=== PATIENT | male | born 1980 | race African-American/Black ===

== ENCOUNTER 2025-03-13 14:24 | Outpatient (AMB) | payer MEDICAID, SELFPAY ==
[2025-03-13 14:30] VITALS: BMI 23.7
--- NOTE | 2025-03-13 14:30 | A.OFFVIS_ITS ---
Vital Signs 03/13/25 14:30 Height 6 ft Weight 175 lb BMI 23.7 Intake Visit Reasons: New Pt - Foot Pain Hx of Fracture Intake Note: Jeanne is a 44 year old male who presents today as a New Patient with complaints of bilateral Foot Pain. Hx of left foot fracture that was being treated at [facility]. Patient reports the pain has been going on for about a year and the pain has progressively worsened. He has tried various prescribed medication but found no relief. Pain is located on the dorsum and plantar aspect Allergies No Known Allergies Allergy (Verified 03/13/25 14:30) HPI HPI New Pt - Foot Pain Hx of Fracture: Details: 44-year-old male with past medical history of G6PD deficiency presents for bilateral feet pain. He notes that in approximately 2020, he had a left foot fracture and subsequent surgery. He has had pain since then with burning and tingling sensation to the top of his left foot. Pain is present even when he is sitting and resting, worse when ambulating. He received x-rays at another facility a few weeks ago and was told he has broken hardware. He also has a right foot big toe joint pain that is present when moving his foot and when walking. He denies tobacco use. Review of Systems Const All systems reviewed & are unremarkable except as noted in HPI and below Physical Exam Vital Signs: BMI result Body Mass Index 23.7 Extrem Other: *Bilateral Lower Extremity Focused Exam Vascular: DP/PT 2/4, CFT less than 3 seconds all digits, temperature gradient warm to cool. Mild left dorsal 1st tarsometatarsal joint edema. Mild right 1st Metatarsal-phalangeal joint edema. Derm: Healed surgical scar over the left dorsal 1st tarsometatarsal joint. Elongated thickened dystrophic toenails bilaterally. Neuro: Positive Tinel's test left dorsal deep peroneal nerve. MSK: Moderate pain to left 1st tarsometatarsal joint with piano james test. Pain reciprocated to the left forefoot with forefoot squeeze. Mild pain on maximum dorsiflexion of right hallux 1st Metatarsal-phalangeal joint. Assessment & Plan Assessment & Plan (1) Lisfranc's sprain: Code(s): S93.629A - Sprain of tarsometatarsal ligament of unspecified foot, initial encounter Category: Medical Qualifiers: Encounter type: sequela Laterality: left Qualified Code(s): S93.622S - Sprain of tarsometatarsal ligament of left foot, sequela Plan: * Referred for left foot x-rays. * Differential diagnosis includes nonunion left 1st tarsometatarsal joint, arthritis to the lisfranc joint, versus neuritis. * Recommend carbon fiber insole for his left foot. * Rx Diclofenac 75mg BID * Follow up in 2 weeks. (2) Hallux limitus of right foot: Code(s): M20.5X1 - Other deformities of toe(s) (acquired), right foot Category: Medical Plan: * X-rays right foot ordered (3) Peripheral neuritis of left foot: Code(s): G57.92 - Unspecified mononeuropathy of left lower limb Category: Medical Plan: * Rx Capsaicin ointment Orders: Orders XR Foot Channing 3V Today M20.5X1 - Other deformities of toe(s) (acquired), right foot, S93.629A - Sprain of tarsometatarsal ligament of unspecified foot, initial encounter Medications: New capsaicin 0.1% (Arthritis Pain Relief (capsaicin)) do not wash area for at least 30 min after application 1 appl topical TID 42.5 grams 3RF Neuritis G57.92 - Unspecified mononeuropathy of left lower limb meloxicam Take 1 tablet once a day. 15 mg PO DAILY 14 tabs 0RF Foot pain M20.5X1 - Other deformities of toe(s) (acquired), right foot, S93.622S - Sprain of tarsometatarsal ligament of left foot, sequela Coding Level of Care Code New Pt Level 4 (47982) Diagnoses Sprain of tarsometatarsal ligament of left foot, sequela S93.622S Encounter type: sequela Laterality: left Hallux limitus of right foot M20.5X1 Peripheral neuritis of left foot G57.92 Time Spent (min) 35 Comment Ordered x-ray, prescribed medication
== END 2025-03-13 14:46 | disposition home or self-care (01) ==
LOC: HO.HPODS 14:24
PROVIDERS: PCP Nurse Practitioner Family; Visit Provider Student in an Organized Health Care Education/Training Program
DX: S93.622S Sprain of tarsometatarsal ligament of left foot, sequela (principal); M20.5X1 Other deformities of toe(s) (acquired), right foot; G57.92 Unspecified mononeuropathy of left lower limb
CPT/HCPCS: 99204

== ENCOUNTER → 2025-03-13 14:24 | Outpatient (BNVA) | payer MEDICAID, SELFPAY | PROVIDERS: PCP Nurse Practitioner Family; Visit Provider Student in an Organized Health Care Education/Training Program | DX: M20.5X1 Other deformities of toe(s) (acquired), right foot (principal); G57.92 Unspecified mononeuropathy of left lower limb; S93.622S Sprain of tarsometatarsal ligament of left foot, sequela; M79.672 Pain in left foot; M79.671 Pain in right foot | CPT/HCPCS: 99202 ==

== ENCOUNTER 2025-04-05 14:52 | Outpatient (REF) | payer MEDICAID, SELFPAY ==
--- NOTE | ~2025-04-05 | XR_ITS ---
EXAMINATION: XR FOOT 3 OR MORE VIEWS BILATERAL CLINICAL INFORMATION: M20.5X1 - Other deformities of toe(s) (acquired), right foot History of left 1st tarsometatarsal joint surgery. COMPARISON: None available. TECHNIQUE: Three views of the right of the right and left foot. FINDINGS: Right: No acute fracture or destruction bone lesion. Mild hallux valgus. No dislocation. No radiopaque foreign body. Left: Postoperative changes with hardware placement centered at first tarsometatarsal joint. The plate across the first tarsometatarsal joint is broken. No abnormal lucency surrounding the hardware. The first tarsometatarsal joint space is still visible. No acute fracture or destructive bone lesion. No dislocation. XR/XR Foot [place] 3V IMPRESSION: Right: Mild hallux valgus. Left: Postoperative changes. Fractured hardware across the first tarsometatarsal joint. Electronically signed by: Sybil Odom MD 04/05/2025 04:04 PM EDT
--- OUTSIDE RECORDS SUMMARY | 2025-04-05 17:47 | XMS_ITS | Data Portability ---
Author Organization GEOVANNA Glover [facility], [address] Address [address] [place] [address] Care Team Providers Care Coconut Boiler Name Role Phone [facility] Care Provider Assessment Encounter Date Assessment Date Assessment LastModified by Organization Details LastModified Time 03/20/2024 03/20/2024 Patient was evaluated by the Physician Commercial Lines Sales Executive using AV technology. This type of exam does not replace a need for an in-person evaluation if symptoms worsen or do not improve after 24-48 hours. Not available 03/20/2024 19:49:21 03/21/2024 03/21/2024 Patient was evaluated by the Physician Commercial Lines Sales Executive using AV technology. This type of exam does not replace a need for an in-person evaluation if symptoms worsen or do not improve after 24-48 hours. Not available 03/21/2024 12:13:45 03/25/2024 03/25/2024 Patient was evaluated by the Physician Commercial Lines Sales Executive using AV technology. This type of exam does not replace a need for an in-person evaluation if symptoms worsen or do not improve after 24-48 hours. Not available 03/25/2024 17:58:42 Plan of Treatment Reminders Order Date Submit Date Provider Last Modified By Organization Details Last Modified Time Details Appointments None recorded. Lab None recorded. Referral tapper hand referral - bilateral foot pain planter side , mutiple callous and blister formation. need further evaluation and treatment. 2023 024 [email or web address] Not available 19:08:38 Procedures None recorded. Surgeries None recorded. Imaging None recorded. Medication Orders sumatriptan 50 mg tablet 2023 024 [id number], [address] [place], [address], 17:57:07 neomycin-po lymyxin-hyd rocort 3.5 mg-10,000 unit/mL-1 % ear drops,susp 2023 024 [email or web address] 31 [id number], [address] [place], [address], 17:47:38 erythromyci n 5 mg/gram (0.5 %) eye ointment 2023 024 [email or web address] 31 [id number], [address] [place], [address], 17:47:33 ibuprofen 800 mg tablet 2023 024 2 [id number], [address] [place], [address], 19:28:03 cephalexin 500 mg capsule 2023 024 [email or web address] 2 [id number], [address] [place], [address], 19:27:03 fluticasone propionate 50 mcg/actuati on nasal spray,suspe nsion 2023 024 [email or web address] 2 [id number], [address] [place], [address], 19:27:57 Patient TargetsNo targets recorded. 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 need further evaluation an bilateral foot pain planter side , mutiple callous and blister formation. need further evaluation and treatment. Referring Physician: Miguel Delacruz, Urgent Care, Encounter Date: 03/03/2024 Results Created Date Observation Date Name Description Value Unit Range Abnormal Flag Note LastModifiedBy Organization Detail LastModifiedTime Result Notes None recorded. 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 Procedures Surgical History Date Name Laterality Status Provider Name and Address Organization Details Recorded Time 4 Virtual Visit completed GEOVANNA Woods [address] [place], [address], [place] - [facility] 03/25/2024 17:52:30 4 Virtual Visit completed Tracy Palumbo PA - [facility] 03/21/2024 12:04:54 4 Virtual Visit completed Erica Cortés PA - [facility] 03/20/2024 19:23:36 3 OC-UDS Rapid 5 or 10 panel Template completed Cleve Lee PA - [facility] 07/08/2022 18:30:18 procedure on knee completed Traesuki Rodas PA - [facility] 01/10/2024 18:37:37 procedure on foot completed Trae Curto PA - [facility] 01/10/2024 18:37:20 procedure on facial bone completed Trae Curto PA - [facility] 01/10/2024 18:38:20 Imaging Results None recorded. Procedure Notes None recorded. Medical Equipment None Reported. Allergies Allergen ID Allergen Name Allergen Category Reaction Reaction Severity Criticality Documentation Date Start Date Code Code System Note Provider Name and Address Organization Details Recorded Time 773330 Tylenol medicatio n Not available Not available Not available 03/20/2024 3 RxNorm G6PD unabl e to take Erica Cortés don PA - [facility] 19:26:56 Medications Name Sig Start Date Stop Date Status Note LastModified by Organization Details LastModified Time cyclobenzap rine 10 mg tablet TAKE 1 TABLET BY MOUTH THREE TIMES A DAY NEEDED FOR PAIN/SPAS M 03/20 completed Not Available Not Available Not Available loperamide 2 mg capsule 03/20 completed Not Available Not Available Not Available cetirizine 10 mg tablet TAKE 1 TABLET BY MOUTH EVERY DAY active Not Available Not Available No t Available ibuprofen 800 mg tablet Take 1 tablet 3 times a day by oral route with meal(s) for 10 days, for pain, inflammat ion. 03/20 completed Not Available Not Available Not Available tizanidine 4 mg tablet TAKE 1 TABLET BY MOUTH EVERY 8 HOURS NEEDED FOR SPASMS 03/20 completed Not Available Not Available Not Available prednisone 20 mg tablet TAKE 2 TABLETS BY MOUTH DAILY 03/20 completed Not Available Not Available Not Available loperamide 2 mg tablet Take 2 tablets as needed by oral route, for diarrhea. 03/20 completed Not Available Not Available Not Available methylpredn isolone 4 mg tablet TAKE 6 TABLETS ON DAY 1 DIRECTED ON PACKAGE AND DECREASE BY 1 TAB EACH DAY FOR A TOTAL OF 6 DAYS 03/20 completed Not Available Not Available Not Available sumatriptan 50 mg tablet TAKE 1 TABLET ORALLY NEEDED FOR MIGRAINE, CAN REPEAT IN 2 HOURS. MAX OF 2 IN 24 HRS active Not Available Not Available No t Available cephalexin 500 mg capsule Take 1 capsule every 8 hours by oral route with meal(s) for 7 days, for skin infection . 03/20 completed Not Available Not Available Not Available erythromyci n 5 mg/gram (0.5 %) eye ointment APPLY 1 CM RIBBON INTO THE LOWER CONJUNCTI HERNANDO SAC(S) IN THE AFFECTED EYE(S) BY OPHTHALMI C ROUTE 3 TIMES PER DAY FOR 7 DAYS 03/25 completed Not Available Not Available Not Available dexamethaso ne 4 mg tablet TAKE 1 TABLET BY MOUTH TWICE A DAY 03/20 completed Not Available Not Available Not Available ibuprofen 400 mg tablet TAKE 1 TABLET BY MOUTH 4 TIMES DAILY NEEDED FOR PAIN. 03/20 completed Not Available Not Available Not Available clotrimazol e 1 % topical solution INSTILL 4 DROPS INTO THE AFFECTED EAR TWICE DAILY FOR 10 DAYS 03/20 completed Not Available Not Available Not Available ibuprofen 600 mg tablet TAKE 1 TABLET BY MOUTH 3 TIMES A DAY FOR 10 DAYS 03/20 completed Not Available Not Available Not Available ondansetron 4 mg disintegrat ing tablet TAKE 1 TABLET (ORAL) EVERY 6 HOURS (NAUSEA AND VOMITING) FOR 5 DAYS 03/20 completed Not Available Not Available Not Available fluticasone propionate 50 mcg/actuati on nasal spray,suspe nsion INSTILL 2 SPRAY INTO THE NOSTRIL ONCE DAILY FOR 90 DAYS 03/20 completed Not Available Not Available Not Available naproxen 500 mg tablet TAKE 1 TABLET BY MOUTH TWICE A DAY 03/20 completed Not Available Not Available Not Available neomycin-po lymyxin-hyd rocort 3.5 mg-10,000 unit/mL-1 % ear drops,susp Instill 4 drops 3 times a day by otic route for 7 days. 03/25 completed Not Available Not Available Not Available escitalopra m 10 mg tablet TAKE 1 TABLET BY MOUTH EVERY DAY 03/20 completed Not Available Not Available Not Available diclofenac 1 % topical gel APPLY 4 G TOPICALLY 2 (TWO) TIMES DAILY 03/20 completed Not Available Not Available Not Available Vitals Date Recorded Body height Body mass index (BMI) Body weight Respiratory rate Body temperature Heart rate Oxygen saturation Oxygen saturation in Arterial blood by Pulse oximetry Systolic And Diastolic Provider Name and Address Organization Details Last Updated DateTime 182.88 cm 24.4 kg/m2 11003.6 3 g 18 /min 97.5 [degF] 74 /min 97 % 97 % 96/67 mm[Hg] Viridiana Grahamts [place] - [facility] 4 10:31:05 Date Recorded Body height Body mass index (BMI) Body weight Pain severity - 0-10 verbal numeric rating [Score] - Reported Oxygen saturation Oxygen saturation in Arterial blood by Pulse oximetry Heart rate Respiratory rate Body temperature Systolic And Diastolic Provider Name and Address Organization Details Last Updated DateTime 182.88 cm 24.4 kg/m2 65320.6 3 g 8 98 % 98 % 73 /min 18 /min 98.7 [degF] 94/61 mm[Hg] Bria Gonzalez [facility] 18:14:34 Date Recorded Body height Body mass index (BMI) Body weight Provider Name and Address Organization Details Last Updated DateTime 03/20/2024 182.88 cm 25.8 kg/m2 77482.55 g Erica Garzaes [place] - [facility] 03/20/2024 19:25:50 Date Recorded Body height Body mass index (BMI) Body weight Provider Name and Address Organization Details Last Updated DateTime 03/21/2024 182.88 cm 25.8 kg/m2 86225.55 g Tracy Palumbo [facility] 03/21/2024 12:06:46 Date Recorded Body height Provider Name an d Address Organization Details Last Updated DateTime 03/25/2024 182.88 cm Bria Gonzalez [facility] 03/25/2024 17:47:24 Social History Question Answer Notes LastModified by Organizat ion Details LastModified Time Tobacco Smoking Status Former Smoker Trae ochoa PA [facility] 01/10/2024 18:37:03 Have You Had A Flu Shot This Season? No Information not available 01/10/2024 If No, Would You Like A Flu Shot Today? No [email or web address] Information not available 03/21/2024 What Is Your Relationship Status? Single [email or web address] Information not available 03/20/2024 Have You Recently Traveled Abroad? No Information not available 01/10/2024 Sex: Unknown Functional Status Question Answer Note LastModified by Organizat ion Details LastModified Time Do you use any illicit or recreational drugs? No Information not available 01/10/2024 Do you or have you ever used any other forms of tobacco or nicotine? No Information not available 01/10/2024 What is your level of alcohol consumption? None Information not available 01/10/2024 Are you currently employed? No [email or web address] Information not available 03/20/2024 Mental Status None recorded. Family History Relationship Description Onset Age of this Age Resolved Age Notes LastModified by Organization Details LastModified Time Mother Hypertensive disorder Not available 2023 18:35:53 Father Hypertensive disorder Not available 2023 18:35:53 Medical History No medical history recorded. Immunizations Vaccine Type Date Status Note Provider Nam e and Address Organization Details Recorded Time Influenza, MDCK, quadrivalent, PF 3 completed Viridiana Robert null, PA - [facility] 02/22/2024 10:15:40 Influenza, recombinant, quadrivalent, PF 0 completed Viridiana Robert null, PA - [facility] 02/22/2024 10:15:40 MMR 5 completed Viridiana Robert null, PA - [facility] 02/22/2024 10:15:41 COVID-19, mRNA, LNP-S, PF, 100 mcg/0.5mL dose or 50 mcg/0.25mL dose 2 completed Viridiana Robert null, PA - [facility] 02/22/2024 10:15:41 COVID-19, mRNA, LNP-S, PF, 100 mcg/0.5mL dose or 50 mcg/0.25mL dose 1 completed Viridiana Robert null, PA - [facility] 02/22/2024 10:15:41 COVID-19, mRNA, LNP-S, PF, 100 mcg/0.5mL dose or 50 mcg/0.25mL dose 1 completed Viridiana Robert null, PA - [facility] 02/22/2024 10:15:41 COVID-19, mRNA, LNP-S, bivalent, PF, 50 mcg/0.5 mL or 25mcg/0.25 mL dose 3 completed Viridiana Robert null, PA - [facility] 02/22/2024 10:15:41 Tdap 3 completed Viridiana Robert null, PA - [facility] 02/22/2024 10:15:41 Tdap 5 completed Viridiana Robert null, PA - [facility] 02/22/2024 10:15:41 Tdap 1 completed Viridiana Robert null, PA - [facility] 02/22/2024 10:15:41 Tdap 4 completed Viridiana Robert null, PA - [facility] 02/22/2024 10:15:41 Influenza, split virus, trivalent, preservative 7 completed Viridiana Robert null, PA - [facility] 02/22/2024 10:15:41 Influenza, split virus, trivalent, preservative 7 completed Viridiana Robert null, PA - [facility] 02/22/2024 10:15:41 Influenza, split virus, trivalent, preservative 4 completed Viridiana Robert null, PA - [facility] 02/22/2024 10:15:41 Influenza, split virus, trivalent, preservative 9 completed Viridiana Robert null, PA - [facility] 02/22/2024 10:15:41 Influenza, split virus, trivalent, preservative 4 completed Viridiana Robert null, PA - [facility] 02/22/2024 10:15:41 Influenza, split virus, quadrivalent, PF 1 completed Viridiana Robert null, PA - [facility] 02/22/2024 10:15:41 Hep A, unspecified formulation 8 completed Viridiana Robert null, PA - [facility] 02/22/2024 10:15:41 Hep A, unspecified formulation 8 completed Viridiana Jones null, PA - [facility] 02/22/2024 10:15:41 Hep A, unspecified formulation 5 completed Viridiana Jones null, PA - [facility] 02/22/2024 10:15:41 COVID-19, mRNA, LNP-S, PF, 50 mcg/0.5 mL 4 completed Erica Cortés null, PA - [facility] 03/20/2024 19:26:05 Past Encounters Encounter ID Performer Location Encounter Start Date Encounter Closed Date Diagnosis/Indication Diagnosis SNOMED-CT Code Diagnosis ICD10 Code Diagnosis IMO Codes Diagnosis Note [id number] [address] [facility] [place] [address] 06/20/2019 10:31:31 06/20/2019 13:37:24 [id number] Suzette Lauren [facility] [address] [facility] [place] [address] 07/08/2022 16:28:05 07/08/2022 19:31:54 History and physical examination, pre-employment [id number] Z02.1 [id number] Miguel Delacruz [facility] [address] [facility] [place] [address] 01/10/2024 18:14:01 01/10/2024 19:47:12 Contusion of left forearm [id number] S50.12XA You have a large Contusion/ Hematoma of the skin. The following are my recommenda tions to help with your discomfort and healing1. Ice regularly for the next 3 days.2. After 3 days apply a heating pad to the area several times during the day - this will help keep the clot more liquid and allow the body to reabsorb it.3. Take Ibuprofen or Tylenol if you do not have any allergies to these medication s. If you take a blood thinner you should not take NSAIDS like Ibuprofen. 4. I would purchase some Arnica Cream and apply it to the bruise area. This will help with the healing and provide some pain relief. Follow up if the skin around the bruise becomes hot and red - this could indicate infection. The bruise will resolve over time. The length is depended on the size. The larger the bruise the longer it will take for it to resolve. Some bruises/he matomas will take 1-2 months to completely resolve. If you have any concerns about the bruise or if it changes appearance , I would advise having a medical profession al look at it. [id number] GEOVANNA Araya [address] [facility] [place] [address] 02/13/2024 10:33:36 02/13/2024 11:19:08 Viral gastroenteritis 073651846 A08.4 [id number] GEOVANNA Woods [address] [place] [address] 02/22/2024 10:13:37 02/22/2024 10:43:48 Plantar fasciitis of right foot 5091367788 3279498 M72.2 One of the most common causes of heel pain is a problem called plantar fasciitis. Plantar fasciitis is the term doctors use when a part of the foot called the plantar fascia gets irritated. The plantar fascia is a tough band of tissue that connects the heel bone to the toes The following may help with the pain- Rest Rest your foot to help it heal. But don't completely stop being active. Doing that can lead to more pain and stiffness in the long run. Ice your foot Putting ice on your heel for 20 minutes up to 4 times a day might relieve pain. Put a thin towel between the ice and your skin. Icing and massaging your foot before exercise might also help. Do special foot exercises Certain exercises can help with heel pain. Do these exercises every day Take pain medicines If your pain is severe, you can try taking over-the-c ounter pain medicines. Examples include ibuprofen (sample brand names: Advil, Motrin) and naproxen (sample brand name: Aleve). Please take as directed on the package labeling. Wear sturdy shoes Sneakers with a lot of cushion and good arch and heel support are best. Shoes with rigid soles can also help. Adding padded or gel heel inserts to your shoes might help, too. Wear splints at night Some people feel better if they wear a splint while they sleep that keeps their foot straight. These splints are sold in pharmacies and medical supply stores. Recommend following with a specialist if symptoms persist or new symptoms arise. A radiologis t is going to read your radiologis t report, if they see anything abnormal or different I will call you with the results. If you don't hear from [facility] radiologis t agreed with my interpreta tion. Upper resp iratory infection 95753412 J06.9 Patient presented with symptoms of upper respirator y infection. Advised to drink plenty of fluids, run a cool-mist humidifier in room at night, gargle salt water for sore throat, and get plenty of rest. Patient should avoid over-exert ion and reduce exposure to irritants such as smoke, cold, dry air, and dust.Treat ment currently involves symptomati c relief. Nasal sprays like nasonex and flonase (or generic) as well as neti pot to help clear sinuses Patient may take acetaminop hen or ibuprofen as directed to reduce fever and body aches.Anti histamine and decongesta nt usage was discussed and recommenda tions made.Coby sherwood understood these instructio ns and will follow up in the office in 10 days to 2 weeks if symptoms not improving. ER if any shortness of breath/sumaya st pain or worsening. Thank you for using [facility] today, please feel free to contact our office if you have any questions or concerns. [id number] JEN UGALDE MD [address] [facility] [address] [place] [address] 03/03/2024 17:25:20 03/03/2024 19:08:38 Pain in bilateral feet 6604848198 8853254 M79.671 Based on your presentati on and exam today, I am diagnosing you with foot blister.. I am going to prescribe you and antibiotic to help prevent an infection since this is deep. Please be sure to complete the full course of this antibiotic to prevent antibiotic resistance . I suggest with any antibiotic that you take Florastor or another probiotic. This help re-coloniz e you body with the good bacteria. The following are my recommenda tions to help you feel better and aid in resolving this infection: 1. No creams or lotions on the affected area - so no Antibiotic ointment.2 . Take Ibuprofen or Tylenol if you do not have any allergies to these medication s. If you take a blood thinner you should not take NSAIDS like Ibuprofen. These medication will help with the inflammati on in your respirator y tract which should help the cough.3. Try to limit walking for the next 3-5 days so the body can form new skin below.4. Do no squeeze or pick at the area. This can worsen the infection. The following are warning signs to look out for that would suggest an infection. This would mean you should be seen again:1. Fever > 100.52. Redness is spreading to double the size in 24 hours3. Increased swelling and pain.4. Inability to move a joint5. Swollen lymph nodes that are tender Thank you for using [facility] today, please don't hesitate to call or reach out to us if you have any questions or concerns. [id number] GEOVANNA Woods [address] [facility] [address] [place] [address] 03/20/2024 19:15:07 03/20/2024 19:48:53 Hordeolum externum of lower eyelid of right eye 4795101345 43605 H00.012 Based on your presentati on and exam - you are being diagnosed with a Stye and Blephariti s This is a clogged gland in the eyelid. This will resolve over time. The following are my recommenda tions to help with your symptoms and this diagnosis: 1. Do not rub your eyes this can cause it to spread or damage the cornea of your eye.2. Do not wear contacts for at least 1 week if you have contacts.4 . No makeup5. You can take Ibuprofen or Tylenol for discomfort if you are not allergic to them.6. If you get lubricatin g eye drops and put them in the refrigerat or - this can help with itching and discomfort .7. Get an old sock and fill it with a cup of rice - put it in the microwave for a few second and apply it to the eyelid. Do this as frequently as possible - but make sure you don't make it too hot because it could cause a burn if it is too hot - you want it to just be warm.8. Get Baby Wash/Soap and clean eyelashes with a Q-tip everyday. This will help with the itching and irritation . You should be seen again if you develop any of the following symptoms1. Eye pain or pressure behind the eye.2. Redness or significan t swelling of the eyelid or around the eye3. Headache4. Fever > 100.55. No improvemen t in current symptoms in the next 1 week.6. Increased swelling of the eye lid that lasts longer than 2 weeks. Thank you for using [facility] today, please feel free to contact us with any questions or concerns. [id number] GEOVANNA Woods [address] [facility] [address] [place] [address] 03/21/2024 12:02:38 03/21/2024 12:31:15 Otitis externa of right ear 2646418071 435183 H60.91 You have been diagnosed with a External Ear infection and early erysipelas . Suggestion s to help with your discomfort and recovery include:1. Laying the effected ear on a heating pad or applying a warm rice bag or something warm.2. Motrin and Tylenol Regularly - this will help with pain and inflammati on of the Eustachian Tube - this is very important for a speedy recovery.3 . Antihistam ine like Benedryl - will help with swelling.4 . Staying Hydrated If you develop any of the following Symptoms I would be seen again - I would recommend the ER1. Fever > 101.02. Stiff Neck3. Pain in the skull behind the Ear.4. Worsening Pain5. Bleeding from the Ear6. Severe Sore Throat.7. Severe Headache Antibiotic s typically take 4-5 days to start working so do the above to help with your symptoms. Probiotics are important while taking antibiotic s - I recommend Florastor Make sure you finish the full course of the antibiotic s - if you don't this can lead to antibiotic resistance . Thank you for using [facility] today - and don't hesitate to contact our office if you have any concerns or questions. [id number] GEOVANNA Woods [address] [facility] [address] [facility] [place] [address] 03/25/2024 17:42:51 03/25/2024 18:00:50 Migraine 35832365 G43.909 A migraine is a severe headache. The pain can be so severe that it interferes with your daily activities . A migraine can last a few hours up to several days. The exact cause of migraines is not known. D ISCHARGE INSTRUCTIO NS: S [place] care immediatel y if:You have a headache that seems different or much worse than your usual migraine headache.Y ou have a severe headache with a fever or a stiff neck.You have new problems with speech, vision, balance, or movement.Y ou feel like you are going to faint, you become confused, or you have a seizure.Co ntact your healthcare provider or neurologis t if:Your migraines interfere with your daily activities .Your medicines or treatments stop working.Yo u have questions or concerns about your condition or care.Medic alfredo:Take medicine as soon as you feel a migraine begin. Manage your symptoms:R est in a dark, quiet room. This will help decrease your pain. Sleep may also help relieve the pain.Apply ice to decrease pain. Use an ice pack, or put crushed ice in a plastic bag. Cover the ice pack with a towel and place it on your head where it hurts for 15 to 20 minutes every hour.Apply heat to decrease pain and muscle spasms. Use a small towel dampened with warm water or a heating pad, or sit in a warm bath. Apply heat on the area for 20 to 30 minutes every 2 hours. You may alternate heat and ice. Pain in bi lateral feet [id number] M79.671 Following with podiatry for plantar fasciitis Health Concerns Section Related Observation LastModified by Organization Detai ls LastModified Time None Recorded Concern Status LastModified by Organization Details LastModified Time None Recorded Advance Directives Directive None Recorded Payers Insurance Date Sequence Insurance Name Policy Number Policy Arboleda Covered Member ID Arboleda Member ID Guarantor Name 07/08/2022 OC-ESCREEN Escreen PFS EL CAJON Devendra Husain 04/03/2024 1 [facility] (MEDICAID REPLACEMENT - HMO) TRIPP Layone Wan Husain [id number] Devendra Husain 04/03/2024 1 [facility] (MEDICAID REPLACEMENT - HMO) [id number] Devendra Husain [id number] Devendra Husain 01/10/2024 1 [facility] (MEDICAID HMO) [id number] Devendra Husain [id number] Devendra Husain 05/06/2022 [employer]IC WORKER[employer] (MOVED TO HOLD) Oc-Medexp ress Occ Med Generic (Move To Hold) [[id number]] Devendra Husain Notes Date Note Type Note Provider Name and Address Organization Details Recorded Time 02/22/20 24 text/htm l 43 y/o male with pain to the bottom of his R foot for several months, worsening. Also with sinus congestion for the past several weeks, no fevers, chills, minimal cough [place], [address], [place] - [facility] 02/22/2024 10:51:06 03/03/20 24 text/htm l Foot/Ankle UCReported by PatientHPIFor associated symptoms, patient reportsswellingandrednessbut reportsno weakness,no numbness,no tingling,no warmth, andno ecchymosis. 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 stating bottom of bilateral feet hurt very bad.). For location, patient reportsbilateralandfoot. For problem, patient reportsswelling. For severity, patient reportsmoderate. For duration, patient reports4 weeks. For context, patient reportsoveruse. For aggravating factors, patient reportsgoing from sit to stand,standing, andwalking. For alleviating factors, patient reportselevation,ice,limited weight bearing, andrest. For previous injury, patient reportsno prior injury to affected body part. For previous treatment, patient reportsnone. For prior imaging, patient reportsnone. Miguel Delacruz NP [address] [place], [address], [place] - [facility] 03/03/2024 19:07:46 03/20/20 24 text/htm l Verified the Patient's Name and at the start of visit.Audio/Visual Technology was used and functioning properly.Patient (and Guardian) - verbally understands limitations of a medical exam using A/V Technology - understands alternative treatment would be to visit an on-site medical facility.The patient did confirm they are physically located in the state that I hold a valid medical license. 43 y/o male with swelling to his R lower eyelid, started 2 days ago, uncomfortable, some drainage GEOVANNA Woods [address], [place], [address], [place] - [facility] 03/20/2024 19:49:34 03/21/20 24 text/htm l Verified the Patient's Name and at the start of visit.Audio/Visual Technology was used and functioning properly.Patient (and Guardian) - verbally understands limitations of a medical exam using A/V Technology - understands alternative treatment would be to visit an on-site medical facility.The patient did confirm they are physically located in the state that I hold a valid medical license. 43 y/o male for virtual visit for right ear pain, feels like wax is built up and crusted up. Started a week or so. GEOVANNA Woods [address] [place], [address], [place] - [facility] 03/21/2024 12:29:00 03/25/20 24 text/htm l Verified the Patient's Name and at the start of visit.Audio/Visual Technology was used and functioning properly.Patient (and Guardian) - verbally understands limitations of a medical exam using A/V Technology - understands alternative treatment would be to visit an on-site medical facility.The patient did confirm they are physically located in the state that I hold a valid medical license. 43 y/o male for virtual visit having foot pain, has follow up with podiatry in 3 days. Also having a migraine, usually takes sumatriptan, has run out. needs refill [address] [place], [address], [place] - [facility] 03/25/2024 17:58:56
== END 2025-04-05 14:53 | disposition home or self-care (01) ==
LOC: HO.HHCX 14:52
PROVIDERS: Visit Provider Student in an Organized Health Care Education/Training Program
DX: M20.5X1 Other deformities of toe(s) (acquired), right foot (principal); S93.621D Sprain of tarsometatarsal ligament of right foot, subsequent encounter; Z98.890 Other specified postprocedural states
CPT/HCPCS: 73630

== ENCOUNTER → 2025-04-05 15:14 | Outpatient (BNV) | payer MEDICAID, SELFPAY | PROVIDERS: Visit Provider Radiology Body Imaging | DX: M20.11 Hallux valgus (acquired), right foot (principal); Z96.698 Presence of other orthopedic joint implants | CPT/HCPCS: 73630 ==

== ENCOUNTER 2025-04-06 10:35 | Outpatient (AMB) | payer MEDICAID, SELFPAY ==
--- NOTE | 2025-04-06 10:44 | A.OFFVIS_ITS ---
Vital Signs 04/06/25 10:48 Height 6 ft Weight 175 lb BMI 23.7 Intake Visit Reasons: Foot Pain Hx of Fracture Intake Note: Jeanne is a 44 year old male who presents today for a follow up on his bilateral foot pain. Patient has concerns due to his pain worsening since the last time he was seen. He has tried OTC pain as well as prescribed medication but has found no relief for his symptoms. Allergies No Known Allergies Allergy (Verified 04/06/25 10:48) HPI HPI Foot Pain Hx of Fracture: Details: 44-year-old male with past medical history of G6PD deficiency returns for for bilateral feet pain. Patient notes that the pain to his toes bilaterally is worsening. History: He notes that in approximately 2020, he had a left foot fracture and subsequent surgery. He has had pain since then with burning and tingling sensation to the top of his left foot. Pain is present even when he is sitting and resting, worse when ambulating. He received x-rays at another facility a few weeks ago and was told he has broken hardware. He also has a right foot big toe joint pain that is present when moving his foot and when walking. He denies tobacco use. Review of Systems Const All systems reviewed & are unremarkable except as noted in HPI and below Physical Exam Vital Signs: BMI result Body Mass Index 23.7 Extrem Other: *Bilateral Lower Extremity Focused Exam Vascular: DP/PT 2/4, CFT less than 3 seconds all digits, temperature gradient warm to cool. Mild left dorsal 1st tarsometatarsal joint edema. Mild right 1st Metatarsal-phalangeal joint edema. Derm: Healed surgical scar over the left dorsal 1st tarsometatarsal joint. Elongated thickened dystrophic toenails bilaterally. Neuro: Positive Tinel's test left dorsal deep peroneal nerve. MSK: Moderate pain to left 1st tarsometatarsal joint with piano james test. Range of motion to the left 1st and 2nd ray still present. Pain reciprocated to the left forefoot with forefoot squeeze. Moderate pain on maximum dorsiflexion of right hallux 1st Metatarsal-phalangeal joint. Results Reviewed Results Reviewed: Podiatry X-ray Read: 04/05/2025 X-ray right foot 3 views (AP, MO, Lateral) reviewed which shows moderate joint space narrowing of the 1st metatarsophalangeal joint with mild hallux abductovalgus. Normal tibial sesamoid position without fracture. I personally reviewed the imaging and my findings are listed above. Podiatry X-ray Read: 04/05/2025 X-ray left foot 3 views (AP, MO, Lateral) reviewed which shows n onunion of the 1st and 2nd tarsometatarsal joints with broken plate overlying the 1st tarsometatarsal joint, intact Lisfranc home-run screw. Moderate joint space narrowing of the 4th tarsometatarsal joint. I personally reviewed the imaging and my findings are listed above. Assessment & Plan Assessment & Plan (1) Nonunion of fracture of left foot: Code(s): S92.902K - Unspecified fracture of left foot, subsequent encounter for fracture with nonunion Category: Medical Plan: * Reviewed left foot x-rays with the patient. * Explained that he has a nonunion of his Lisfranc injury. * Treatment options were discussed in the form of removal of hardware, revision 1st and 2nd tarsometatarsal joint arthrodesis and DPN decompression. * Ordered vitamin-D, CBC, BNP labs to evaluate other sources of possible nonunion. Given his history of G6PD, he may require treatment for his anemia prior to undergoing surgical correction. (2) Peripheral neuritis of left foot: Code(s): G57.92 - Unspecified mononeuropathy of left lower limb Category: Medical Plan: * Reviewed x-rays with the patient. (3) Neuritis of right foot: Code(s): G57.91 - Unspecified mononeuropathy of right lower limb Category: Medical Plan: * Ordered vitamin-B testing * Referred for EMG NCV studies Orders: Orders NE electromyogram (EMG) Today G57.91 - Unspecified mononeuropathy of right lower limb, G57.92 - Unspecified mononeuropathy of left lower limb NE nerve conduction velocity Today G57.91 - Unspecified mononeuropathy of right lower limb, G57.92 - Unspecified mononeuropathy of left lower limb Vitamin B12 Today G57.91 - Unspecified mononeuropathy of right lower limb, G57.92 - Unspecified mononeuropathy of left lower limb Vitamin D 25-OH Total Today G57.92 - Unspecified mononeuropathy of left lower limb Complete Blood Count Auto Diff Today G57.91 - Unspecified mononeuropathy of right lower limb, G57.92 - Unspecified mononeuropathy of left lower limb Basic Metabolic Panel Today G57.91 - Unspecified mononeuropathy of right lower limb, G57.92 - Unspecified mononeuropathy of left lower limb Coding Level of Care Code Est Pt Level 3 (71297) Diagnoses Nonunion of fracture of left foot S92.902K Peripheral neuritis of left foot G57.92 Neuritis of right foot G57.91 Time Spent (min) 30
[2025-04-06 10:48] VITALS: BMI 23.7
== END 2025-04-06 11:21 | disposition home or self-care (01) ==
LOC: HO.HPODS 10:36
PROVIDERS: Visit Provider Student in an Organized Health Care Education/Training Program
DX: S92.902K Unspecified fracture of left foot, subsequent encounter for fracture with nonunion (principal); G57.92 Unspecified mononeuropathy of left lower limb; G57.91 Unspecified mononeuropathy of right lower limb
CPT/HCPCS: 99213

== ENCOUNTER → 2025-04-06 10:35 | Outpatient (BNVA) | payer MEDICAID, SELFPAY | PROVIDERS: Visit Provider Student in an Organized Health Care Education/Training Program | DX: S92.325K Nondisplaced fracture of second metatarsal bone, left foot, subsequent encounter for fracture with nonunion (principal); S92.315K Nondisplaced fracture of first metatarsal bone, left foot, subsequent encounter for fracture with nonunion; G57.92 Unspecified mononeuropathy of left lower limb; G57.91 Unspecified mononeuropathy of right lower limb; X58.XXXA Exposure to other specified factors, initial encounter; Y93.9 Activity, unspecified; Y92.9 Unspecified place or not applicable; Y99.9 Unspecified external cause status; T84.213A Breakdown (mechanical) of internal fixation device of bones of foot and toes, initial encounter | CPT/HCPCS: 99212 ==

== ENCOUNTER 2025-05-11 13:17 | Outpatient (REF) | payer MEDICAID, SELFPAY ==
[2025-05-11 18:35] LABS: MANUAL DIFF FLAG NO
[2025-05-11 18:39] LABS: Hematocrit 38.8 % (42.0-52.0); Hemoglobin 12.7 g/dl (14.0-18.0); Imm Gran Abs Auto 0.01 X10*3/uL (0.00-0.03); Imm Gran Pct Auto 0.2 % (0.0-0.4); Lymphocytes Absolute Auto 2.3 X10*3/uL (1.2-4.9); Mean Corpuscular HGB Conc 32.7 g/dl (31.0-36.0); Mean Corpuscular Hemoglobin 33.3 pg (27.0-33.0); Mean Corpuscular Volume 101.8 fL (80.0-98.0); NRBC Abs Auto 0.000 X10*3/uL (0.0-0.012); NRBC Pct Auto 0.0 /100WBC (0.0-0.2); Platelet Count 277 X10*3/uL (160-400); Red Blood Count 3.81 X10*6/uL (4.60-5.80); White Blood Count 4.7 X10*3/uL (4.8-10.8)
[2025-05-11 19:28] LABS: Anion Gap 7 (12-20); Blood Urea Nitrogen 9 mg/dL (9-16); Calcium 9.4 mg/dL (8.4-10.2); Carbon Dioxide 29 mmol/L (22-29); Chloride 109 mmol/L (96-108); Estimated Glomerular Filt Rate > 60; Potassium 4.4 mmol/L (3.3-5.1); Sodium 141 mmol/L (135-145)
[2025-05-11 23:59] LABS: Vitamin B12 579 pg/mL (200-900)
== END 2025-05-11 13:18 | disposition home or self-care (01) ==
LOC: HO.HKASLDS 13:17
PROVIDERS: PCP Dentist General Practice; Visit Provider Student in an Organized Health Care Education/Training Program
DX: G57.93 Unspecified mononeuropathy of bilateral lower limbs (principal)
CPT/HCPCS: 36415; 80048; 82306; 82607; 85025

== ENCOUNTER 2025-05-17 13:00 | Outpatient (AMB) | payer MEDICAID, SELFPAY ==
--- NOTE | 2025-05-17 13:06 | A.OFFVIS_ITS ---
Vital Signs 05/17/25 13:07 Height 6 ft Weight 175 lb BMI 23.7 Intake Visit Reasons: Foot Pain Hx of Fracture/fu nerve test Intake Note: Jeanne is a 44 year old male who presents to the office today for a follow up on his Peripheral neuritis/ BLE. At last visit patient was instructed to complete labs and a EMG study was ordered. Pt states his EMG appointment has been rescheduled for 06/05/25 and his labs have been completed as of 05/11/25. Patient experiences still bilateral pain in his foot however he notes it is worst in his left. Allergies No Known Allergies Allergy (Verified 05/17/25 13:08) HPI HPI Foot Pain Hx of Fracture/fu nerve test: Details: 44-year-old male with past medical history of G6PD deficiency returns for for bilateral feet pain. Patient states he was unable to receive his nerve conduction test. He received his blood tests prior to this visit. He is also experiencing left shoulder pain which he is planning to see orthopedic surgery for. History: He notes that in approximately 2020, he had a left foot fracture and subsequent surgery. He has had pain since then with burning and tingling sensation to the top of his left foot. Pain is present even when he is sitting and resting, worse when ambulating. He received x-rays at another facility a few weeks ago and was told he has broken hardware. He also has a right foot big toe joint pain that is present when moving his foot and when walking. He denies tobacco use. Review of Systems Const All systems reviewed & are unremarkable except as noted in HPI and below Physical Exam Vital Signs: BMI result Body Mass Index 23.7 Extrem Other: *Bilateral Lower Extremity Focused Exam Vascular: DP/PT 2/4, CFT less than 3 seconds all digits, temperature gradient warm to cool. Mild left dorsal 1st tarsometatarsal joint edema. Mild right 1st Metatarsal-phalangeal joint edema. Derm: Healed surgical scar over the left dorsal 1st tarsometatarsal joint. Elongated thickened dystrophic toenails bilaterally. Neuro: Positive Tinel's test left dorsal deep peroneal nerve. MSK: Moderate pain to left 1st tarsometatarsal joint with piano james test. Range of motion to the left 1st and 2nd ray still present. Pain reciprocated to the left forefoot with forefoot squeeze. Moderate pain on maximum dorsiflexion of right hallux 1st Metatarsal-phalangeal joint. Results Reviewed Results Reviewed: Podiatry X-ray Read: 04/05/2025 X-ray right foot 3 views (AP, MO, Lateral) reviewed which shows moderate joint space narrowing of the 1st metatarsophalangeal joint with mild hallux abductovalgus. Normal tibial sesamoid position without fracture. I personally reviewed the imaging and my findings are listed above. Podiatry X-ray Read: 04/05/2025 X-ray left foot 3 views (AP, MO, Lateral) reviewed which shows nonunion of the 1st and 2nd tarsometatarsal joints with broken plate overlying the 1st tarsometatarsal joint, intact Lisfranc home-run screw. Moderate joint space narrowing of the 4th tarsometatarsal joint. I personally reviewed the imaging and my findings are listed above. Laboratory Tests 05/11/25 13:28 WBC 4.7 L Hgb 12.7 L Vitamin B12 579 25-OH Vitamin D Total 19.5 L Assessment & Plan Assessment & Plan (1) Nonunion of fracture of left foot: Code(s): S92.902K - Unspecified fracture of left foot, subsequent encounter for fracture with nonunion Category: Medical Qualifiers: Fracture type: closed Qualified Code(s): S92.902K - Unspecified fracture of left foot, subsequent encounter for fracture with nonunion Plan: * Previously reviewed left foot x-rays with the patient. Explained that he has a nonunion of his Lisfranc injury. * Treatment options were discussed in the form of removal of hardware, revision 1st and 2nd tarsometatarsal joint arthrodesis and DPN decompression. * Discussed that there is a high rate of nonunion due to marijuana use (2) Peripheral neuritis of left foot: Code(s): G57.92 - Unspecified mononeuropathy of left lower limb Category: Medical Plan: * Discussed possible treatment options pending EMG/NCV findings (3) Neuritis of right foot: Code(s): G57.91 - Unspecified mononeuropathy of right lower limb Category: Medical Plan: * Vitamin-B levels within normal limits * Pending EMG NCV studies (4) Vitamin D deficiency: Code(s): E55.9 - Vitamin D deficiency, unspecified Category: Medical Plan: * Recommended vitamin-D 2000 IU daily * Recommend vitamin-D levels within normal limits prior to planning for surgery for revision left foot nonunion Coding Level of Care Code Est Pt Level 3 (67103) Diagnoses Closed fracture of left foot with nonunion, subsequent encounter S92.902K Fracture type: closed Peripheral neuritis of left foot G57.92 Neuritis of right foot G57.91 Vitamin D deficiency E55.9 Time Spent (min) 25
[2025-05-17 13:07] VITALS: BMI 23.7
== END 2025-05-17 13:50 | disposition home or self-care (01) ==
LOC: HO.HPODS 13:01
PROVIDERS: Visit Provider Student in an Organized Health Care Education/Training Program
DX: S92.902K Unspecified fracture of left foot, subsequent encounter for fracture with nonunion (principal); G57.92 Unspecified mononeuropathy of left lower limb; G57.91 Unspecified mononeuropathy of right lower limb; E55.9 Vitamin D deficiency, unspecified
CPT/HCPCS: 99213

== ENCOUNTER → 2025-05-17 13:00 | Outpatient (BNVA) | payer MEDICAID, SELFPAY | PROVIDERS: Visit Provider Student in an Organized Health Care Education/Training Program | DX: S92.902K Unspecified fracture of left foot, subsequent encounter for fracture with nonunion (principal); G57.92 Unspecified mononeuropathy of left lower limb; G57.91 Unspecified mononeuropathy of right lower limb; E55.9 Vitamin D deficiency, unspecified | CPT/HCPCS: 99212 ==

== ENCOUNTER 2025-05-22 10:43 | Outpatient (AMB) | payer MEDICAID, SELFPAY ==
--- NOTE | 2025-05-22 10:45 | MHC.OFFVIS ---
Intake Visit Reasons: New Pt - left shoulder pain Intake Note: Marielos is a 44 year old right hand dominant male who presents today as a new patient for a evaluation of his left shoulder pain. Patient reports he was moving about 1 - 2 months ago and noticed increase pain after. He notices that his pain is on the anterior, posterior and lateral pain, also pain radiates to his neck. Patient notices that his range of motion is a bit limited and over head reaching causes him pain. He states that he was given at the urgent care Diclofenac topical gel and ibuprofen with little to no relief. Allergies acetaminophen (From Tylenol) Allergy (Verified 05/22/25 11:03) Headache HPI Comments Details: History of Present Illness The patient is a 44 year old male presenting with left shoulder pain. The pain began approximately 1-2 months ago, occurring the day after he helped someone move and lifted a washing machine. He is right-hand dominant. He reports having tried oral anti-inflammatories without improvement. A recent MRI of his left shoulder performed approximately one month ago at [facility] revealed no full-thickness rotator cuff tear, but showed minor AC joint degenerative changes, tendinitis, and bursitis. X-rays taken in the office today were negative for any acute fracture or dislocation. His past medical history is notable for cervical radiculopathy. Pain Description - Onset: Started 1-2 months ago, the day after lifting a washing machine. - Location: Left shoulder. - Radiation: Up towards the neck. - Quality: Described as a pinching sensation. - Severity: Severe at times. - Exacerbating factors: Pain occurs with arm movement, specifically when lifting the arm up, reaching across the body, and with resisted elevation. - Associated symptoms: Denies numbness. [facility] Social History (Updated 05/22/25 @ 11:04 by Nicolás Lara) Alcohol intake: never Patient Tobacco Use Status: Never used Tobacco Current occupational status: employed Current occupation: [employer]/ right hand dominant Review of Systems Narrative Review of Systems - Musculoskeletal: Reports pain in the left shoulder. - Neurological: Denies numbness. Physical Exam Exam Exam: Physical Exam - Left Shoulder: - Range of Motion: forward flexion and abduction to end range. - Internal rotation to T12. - Pain is present with cross-body adduction. - Strength: 4/5 strength with empty can-elicits pain. Negative drop arm. - NVI Assessment & Plan Assessment & Plan (1) Painful arc syndrome of left shoulder: Code(s): M75.102 - Unspecified rotator cuff tear or rupture of left shoulder, not specified as traumatic Category: Medical (2) Acromioclavicular joint arthritis: Code(s): M19.019 - Primary osteoarthritis, unspecified shoulder Category: Medical Plan 1. Left Shoulder Tendinitis And Bursitis The patient's left shoulder pain is attributed to tendinitis and bursitis, which is consistent with his recent MRI findings that showed no surgical pathology. Given the failure of oral medications to provide relief, a conservative treatment plan was initiated. The patient was offered a cortisone injection in the left shoulder. The patient was explained the risks, benefits, and alternatives to receiving this injection. After receiving consent for the injection, the patient had the procedure done while in the office today. The patient tolerated the procedure well with no complications. The risks, benefits, and alternatives to a corticosteroid injection were discussed with the patient, including the potential benefits of decreased inflammation and pain, improved function, and diagnostic value. Risks were reviewed, including post-injection flare, skin or fat atrophy, transient facial flushing, temporary elevation in blood glucose, bruising, and rare but serious complications such as infection, tendon weakening or rupture, and cartilage damage with repeated injections. Procedure-related discomfort and possible vasovagal symptoms were also explained. Alternatives were reviewed, including NSAIDs, physical therapy, activity modification, bracing, ice/heat, weight management, hyaluronic acid injections when appropriate, PRP or other orthobiologics, oral steroids, surgery depending on pathology, and observation. The patient verbalized understanding and elected to proceed. After receiving consent for the injection, the patient had the procedure done while in the office today. The patient tolerated the procedure well with no complications. Additionally, I have recommended physical therapy which the patient is amenable to attend. An order has been placed while in the office today and physical therapy business card was provided the patient to contact them to set up an appointment at his earliest convenience. 2. Minor Degenerative Changes Of Left Acromioclavicular Joint The recent MRI revealed minor degenerative changes in the AC joint, which are chronic findings and likely a contributing factor to his impingement symptoms. The current management plan, including the cortisone injection and physical therapy, will address the associated inflammation. No surgical intervention is warranted for this finding at this time. Consent: Patient was informed and verbally consented to the use of an ambient scribe for clinic note documentation during this visit. Patient will follow up PRN, sooner if needed. X-rays of the left shoulder which were obtained while in the office today and were reviewed by me, Kaylan Troncoso PA-C, revealed no acute fracture or dislocation. Orders: Orders XR knee RT 3V Today M25.569 - Pain in unspecified knee XR shoulder LT min 2V Today M25.519 - Pain in unspecified shoulder Coding Level of Care Code New Pt Level 4 (08852) Add On Problem Visit Only Diagnoses Painful arc syndrome of left shoulder M75.102 Acromioclavicular joint arthritis M19.019
--- OUTSIDE RECORDS SUMMARY | 2025-05-22 13:45 | XMS_ITS ---
Author Organization [employer] Address [address] [place] [address] [address] [place] [address] Care Team Providers Care Wildlife Biologist Name Role Phone Veronica Jaramillo RN Unavailable [phone] Yaneth Curry Unavailable Unavailable [facility] Status:Enrolled (Active) Start date:04/24/2025 Enrollment date:04/26/2025 Enrollment reason:ADT Feed Overview Spoke w pt, enolled x2. Case Team Name Relationship Phone Yaneth Curry(Responsible Staff) Continued Care and Services Coordination
--- OUTSIDE RECORDS SUMMARY | 2025-05-22 13:45 | XMS_ITS | Clinical Summary ---
Author Organization [employer] Address [address] [facility] 7t [place] [address] Care Team Providers Care Accredited Pharmacy Technician Name Role Phone Veronica Jaramillo RN Unavailable [phone] Yaneth Curry Unavailable Unavailable Medications albuterol 108 (90 Base) MCG/ACT inhaler Inhale 1 puff every 6 (six) hours if needed. 3 Active cetirizine (ZyrTEC) 10 MG tablet Take 10 mg by mouth Once per day. 4 Active cyclobenzaprine (Flexeril) 10 MG tablet Take 10 mg by mouth in the evening. 5 Active Diclofenac Sodium 1 % gel Apply 2 g topically 2 times daily. 4 Active fluticasone (Flonase) 50 MCG/ACT nasal spray Administer 1 spray into affected nostril(s) Once per day. 4 Active melatonin 3 MG tablet Take 3 mg by mouth if needed at bedtime. 5 Active naproxen (Naprosyn) 250 MG tablet Take 500 mg by mouth with breakfast and with evening meal. 5 Active PARoxetine (Paxil) 10 MG tablet Take 10 mg by mouth Once per day. 5 Active SUMAtriptan (Imitrex) 50 MG tablet Take 50 mg by mouth 1 (one) time if needed for migraine. Take 1 Tablet by mouth 1 (one) time as needed for migraine for up to 1 dose After 2 hrs, if still have migraine, take 1 more pill, total of 100mg per day.. 4 Active topiramate (Topamax) 100 MG tablet Take 100 mg by mouth 2 times daily. 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 Humeral-ulnar and humeral-radial joints are congruent. Proximal radioulnar joint is congruent. The common extensor tendon is intact. Radial collateral and lateral ulnar collateral ligaments are intact. The common flexor tendon is intact. The ulnar collateral ligament is partially torn proximally with disorganized intermediate to hyperintense T2 fat-sat signal (coronal T2 fat sat images 7 and 8). This tear involves the anterior bundle and is borderline high-grade given proximal ligament fiber incongruity and ill-definition (coronal T2 fat sat image 9). Ligament attachment at the sublime tubercle is preserved. Small amount of adjacent soft tissue edema. Biceps muscle and tendon are intact. Brachialis muscle and tendon are intact. Triceps muscle and tendon are intact. Olecranon bursa is nondistended. The ulnar, median and radial nerves are normal. Bone signal is normal. No soft tissue collection. Impression: 1. Ulnar collateral ligament proximal tear is borderline high-grade with involvement of the anterior bundle. Is this elbow unstable? History of fracture of orbit 12/06/2024 Overview (05/02/2025): Reports history of left eye plate Financial difficulties 09/30/2023 Lumbar spondylosis 06/08/2023 Overview (05/02/2025): [facility] MRI May 2023 Vitamin D deficiency 07/10/2022 Chronic low back pain 07/10/2022 Overview (05/02/2025): Xray lumbar spine 03/17/23 IMPRESSION: No lumbar spine fracture. No radiographic evidence of spinal instability with dynamic imaging. Chronic degenerative changes most pronounced at L4-5 and L5-S1 as discussed in detail above. Marijuana user 01/19/2020 Seasonal allergies 11/09/2019 Mild intermittent asthma without complication G6PD deficiency 08/24/2018 Homelessness 07/28/2018 History of reduction of orbital fracture 018 Overview (05/02/2025): Left 2013 Umbilical hernia 11/22/2017 Overview (05/02/2025): Seen by Dr. 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 Anxiety and depression 06/11/2016 Primary insomnia 06/11/2016 History of substance abuse ([facility]) 06/11/2016 Overview (05/02/2025): December 2024- Endorses marijuana use only Encounters Date Type Department Care Team Description 05/21/2025 Patient Outreach [facility] [address] [place] [phone] Veronica Jaramillo, CHUY [facility] Care Management - UTR 1 05/08/[address] [phone] Yaneth Curry 05/02/2025 Patient Outreach [facility] [address] [place] [phone] Veronica Jaramillo RN [facility] Care Management 05/02/2025 Plan of Care Documentation [address] [phone] 04/30/2025 Patient Outreach [facility] [address] [place] [phone] Veronica Jaramillo RN [facility] Care Management 04/26/[address] [phone] Yaneth Curry 04/24/2025 Patient Outreach [facility] [address] [place] [phone] Veronica Jaramillo RN [facility] Care Management - Chart Review 04/23/2025 Patient Outreach [facility] [address] [place] [phone] Christine Parra 04/23/2025 Patient Outreach [facility] [address] [phone] Christine Parra from Last 3 Months Social History Tobacco Use Types Packs/Day Years Used Date Smoking Tobacco: Never Assessed Housing Stability Answer Date Recorded What is your housing situation today? I have navid choi 04/26/[address] you li ve. Do you have problems with any of the following? None of the above 04/26/2025 Food Insecurity Answer Date Recorded Within the past 12 months, y ou worried that your food would run out before you got money to buy more: Often true 04/26/2025 Within the past 12 months,th e food you bought just didn't last and you didn't have enough money to get more: Often true Transportation Answer Date Recorded In the past 12 months, has l ack of transportation kept you from medical appts, meetings, work or from getting things needed for daily living? No 04/26/2025 Utilities Answer Date Recorded In the past 12 months, has t he electric, gas, oil or water company threatened to shut off services in your home? No 04/26/2025 Internet Access Answer Date Recorded Internet Access Q1 Yes 04/26/2025 Internet Access Q2 Not on file 04/26/2025 Sex and Gender Information Value Date Recorded Sex Assigned at Male 04/06/2022 10:24 AM EDT Legal Sex Male 10:24 AM EDT Gender Identity Not on file Sexual Orientation Not on file Plan of Treatment Health Maintenance Due Date Last Done Comments Depression Screening 1982 Lipid Panel 1982 Disability Screening 1982 Alcohol/Substance Use Screening 1994 Tobacco Screening 1994 Family Planning (PISQ) 1997 HPV Vaccines (1 - Male 3-dose series) 1997 Hepatitis C Screening 2000 Hepatitis B Vaccines (1 of 3 - 19+ 3-dose series) 2001 Pneumococcal Vaccine: Pediatrics (0 to 5 Years) and At-Risk Patients (6 to 49) Years (1 of 2 - PCV) 2001 COVID-19 Vaccine (5 - season) 2025 06/08/2023, 01/05/2022, 03/21/2021, Additional history exists Influenza Vaccine (#1) 2025 , 06/10/2022, 04/19/2021, Additional history exists DTaP/Tdap/Td Vaccines (6 - Td or Tdap) 11/18/2030 11/18/2020, 09/17/2019, 10/26/2014, Additional history exists Zoster Vaccines (1 of 2) 2032 RSV Patients and Patients Aged 60 years or older (1 - 1-dose 75+ series) 2057 Hepatitis A Vaccines Aged Out 07/07/2007, 06/15/2007, 09/28/2004 No longer eligible based on patient's age to complete this topic HIV Screening Completed 04/10/2020 HIB Vaccines Aged Out No longer eligi ble based on patient's age to complete this topic IPV Vaccines Aged Out No longer eligi ble based on patient's age to complete this topic Meningococcal B Vaccine Aged Out No l onger eligible based on patient's age to complete this topic Meningococcal Vaccine Aged Out No alex celestine eligible based on patient's age to complete this topic RSV under 20 months Aged Out No longe r eligible based on patient's age to complete this topic Rotavirus Vaccines Aged Out No longer eligible based on patient's age to complete this topic Care Teams Accredited Pharmacy Technician Relationship Specialty Start Date End Date Veronica Jaramillo, CHUY Registered Nurse 04/23/25 Yaneth Curry 04/23/25
--- OUTSIDE RECORDS SUMMARY | 2025-05-22 13:45 | XMS_ITS | Encounter Summary ---
Author Organization [employer] Address [address] [facility] 7[address] [place] [address] Care Team Providers Care Electrical Assembly Technician Name Role Phone Veronica Jaramillo RN Unavailable [phone] Yaneth Curry Unavailable Unavailable Reason for Visit * Reason Comments [facility] Care Management - UTR 1 Encounter Details Date Type Department Care Team (Latest Contact Info) Description 05/21/2025 Patient Outreach [facility] [address] [facility] [address] [place] [address] Veronica Jaramillo RN [facility] Care Management - UTR 1 Social History Tobacco Use Types Packs/Day Years [...] on file Sexual Orientation Not on file documented as of this encounter Progress Notes * Veronica Jaramillo RN - 05/21/2025 11:07 AM EST Outreached to member by phone in Swedish at to review care plan goals. Number is outof service. Unable to leave a message. Will reattempt care plan review at next outreach. Next outreach deferred until after 06/11/25 due to RN CM???s scheduled absence. documented in this encounter Miscellaneous Notes * Care Plan - Veornica Jaramillo RN - 05/21/2025 11:07 AM EST Problem: SDOH Needs Goal: Support SDOH Needs Outcome: Not Progressing Intervention: Communicate SDOH needs with [facility] as needed over the next 90 days Note: Attempted to discuss SDOH needs, phone is out of service. Will reattempt discussion of this at next outreach. Problem: Behavioral Health Goal: Support Behavioral Health Outcome: Not Progressing Intervention: Assist member with connecting with BH services within the next 90 days Note: Attempted to discuss BH needs, phone is out of service. Will reattempt discussion of this at next outreach. Problem: Coordination of Care Goal: Effectively coordinate care Outcome: Not Progressing Intervention: IP Editable Intervention Note: Attempted to discuss medical needs, phone is out of service. Will reattempt discussion of this at next outreach. documented in this encounter Plan of Treatment Not on file documented as of this encounter Visit Diagnoses Not on filedocumented in this encounter Care Teams Electrical Assembly Technician Relationship Specialty Start Date End Date Veronica Jaramillo RN Registered Nurse 04/23/25 Yaneth Curry 04/23/25 documented as of this encounter
--- OUTSIDE RECORDS SUMMARY | 2025-05-22 13:45 | XMS_ITS | Clinical Summary ---
Author Organization [facility] Address [address] [place] [address] Care Team Providers Care Dispatcher Relay Name Role Phone Kyrie Segal Primary Care Provider [phone] Allergies No known active allergies Medications No known medications Social History Tobacco Use Types Packs/Day Years Used Date Smoking Tobacco: Never Assessed Sex and Gender Information Value Date Recorded Sex Assigned at Not on file Legal Sex Male 2:57 PM EDT Gender Identity Not on file Sexual Orientation Not on file Last Filed Vital Signs Vital Sign Reading Time Taken Comments Blood Pressure 116/68 12/30/2023 11:11 AM EDT Pulse 57 12/30/2023 11:11 AM EDT Temperature 36.3 C (97.3 F) 12/30/2023 11:11 AM EDT Respiratory Rate 18 12/30/2023 11:11 AM EDT Oxygen Saturation 98% 12/30/2023 11:11 AM EDT Inhaled Oxygen Concentration - - Weight 74.8 kg (165 lb) 12/30/2023 11:11 AM EDT Height - - Body Mass Index - - Plan of Treatment Health Maintenance Due Date Last Done Comments Hepatitis C Screening 1982 Varicella Vaccines (1 of 2 - 13+ 2-dose series) 09/04/1995 Hepatitis B Vaccines (1 of 3 - 19+ 3-dose series) 2001 Pneumococcal Vaccine: Pediat vadim (0-5 Years) and At-Risk Patients (6-50 Years) (1 of 2 - PCV) 2001 Alcohol/Substance Use Screening 06/07/2024 Depression Screening and Follow-Up 06/07/2024 Social Drivers of Health Sanjana ual Screening 06/07/2024 Influenza Vaccine (#1) 2025 3, 04/19/2021, 04/08/2020, Additional history exists COVID-19 Vaccine (6 - 2024-2 6 season) 2025 06/08/2023, 06/08/2023, 06/10/2022, Additional history exists DTaP,Tdap,and Td Vaccines (6 - Td or Tdap) 11/18/2030 11/18/2020, 09/17/2019, 10/26/2014, Additional history exists HIV Screening Completed 04/10/2020 Insurance HS[employer] MEDICAID Care Teams Dispatcher Relay Relationship Specialty Start Date End Date Kyrie Segal [address] [place] [id number] PCP - General Internal Medicine 07/10/24
--- OUTSIDE RECORDS SUMMARY | 2025-05-22 13:45 | XMS_ITS | Clinical Summary ---
Author Organization [facility] Address [address] [place] [address] Phone Care Team Providers Care Lodging House Keeper Name Role Phone Dillon Woodall NP Primary Care Provider [phone] Allergies Active Allergy Reactions Criticality Noted Date Comments Acetaminophen 02/04/2022 Other Reaction(s): G6PD-, UNKNOWN G6PD Other reaction(s): G6PD- G6PD Other reaction(s): G6PD- G6PD Medications cetirizine (ZyrTEC) 10 mg tablet Take 1 tablet (10 mg total) by mouth 1 (one) time each day. 4 Active lidocaine (LIDODERM) 5 % patch Place 1 patch on the skin daily. 3 Active fluticasone propionate (FLONASE) 50 mcg/actuation nasal spray Administer 1 spray into each nostril 1 (one) time each day. 4 Active docusate sodium (COLACE) 100 mg capsule Take 1 capsule (100 mg total) by mouth. 3 Active escitalopram (LEXAPRO) 10 mg tablet Take 1 tablet (10 mg total) by mouth daily. 4 Active diclofenac (VOLTAREN) 1 % topical gel Apply 4 g topically 2 times daily. 4 Active cyanocobalamin (VITAMIN B-12) 100 mcg tablet Take 1 tablet (100 mcg total) by mouth daily. 3 Active cholecalciferol (VITAMIN D-3) 50 mcg (2,000 unit) capsule Take 1 capsule (2,000 Units total) by mouth daily. 3 Active albuterol HFA (Ventolin HFA) 90 mcg/actuation inhaler 3 Active lidocaine 4 % patch Apply 1 patch topically. 2 Active meloxicam (Mobic) 15 mg tablet Take 1 tablet (15 mg total) by mouth 1 (one) time each day. 4 Active methylPREDNISol one (MEDROL) 4 mg tablet 4 Active multivitamin minerals-iron (Therapeutic-M) 9 mg iron-400 mcg tablet Take 1 tablet by mouth daily. 3 Active naproxen (NAPROSYN) 500 mg tablet Take 1 tablet (500 mg total) by mouth 2 times daily. 3 Active methocarbamoL (ROBAXIN) 750 mg tablet Take 1 tablet (750 mg total) by mouth 3 (three) times a day if needed for muscle spasms for up to 10 days. 20 each 5 Active cyclobenzaprine (FLEXERIL) 10 mg tablet Take 1 tablet (10 mg total) by mouth 3 (three) times a day. 5 Active gabapentin (NEURONTIN) 300 mg capsule Take 1 capsule (300 mg total) by mouth 3 times daily. 5 Active guanFACINE (TENEX) 1 mg tablet Take 1 tablet (1 mg total) by mouth. 5 Active ibuprofen (ADVIL,MOTRIN) 800 mg tablet TAKE 1 TABLET BY MOUTH EVERY 8 HOURS FOR PAIN 5 Active miscellaneous medical supply [facility] 5 Active melatonin 3 mg tablet 5 Active PARoxetine (PAXIL) 10 mg tablet Take 1 tablet (10 mg total) by mouth. 5 Active dexAMETHasone (DECADRON) 4 mg tabletIndicatio ns:Chronic right-sided low back pain with right-sided sciatica Take 1 tablet (4 mg total) by mouth 4 (four) times a day for 4 days. 16 each 5 Active riboflavin (VITAMIN B2) 400 mg tablet TAKE 1 TABLET BY MOUTH DAILY, MAY DISCOLOR URINE 5 Active Active Problems Problem Noted Date Diagnosed Date Major depressive disorder, r ecurrent severe without psychotic features 12/06/2024 Harmful use of alcohol 12/06/2024 ADHD (attention deficit hype ractivity disorder), predominantly hyperactive impulsive type 12/06/2024 Cannabis dependence 09/22/2024 Asthma 03/06/2024 G6PD deficiency anemia 11/26/2023 Headaches, cluster 11/26/2023 Lumbar spondylosis 06/08/2023 Overview (03/06/2024): [facility] MRI May 2023 Chronic right-sided low back pain with right-cyn ed sciatica 07/10/2022 Overview (03/06/2024): Xray lumbar spine 03/17/23 IMPRESSION: No lumbar spine fracture. No radiographic evidence of spinal instability with dynamic imaging. Chronic degenerative changes most pronounced at L4-5 and L5-S1 as discussed in detail above. Assessment & Plan (01/04/2025 12:04 PM EDT): Mr. Senior describes years of low back pain and months of right lower extremity pain. He describes pain from the back into the right buttock, lateral hip and thigh to the knee and sometimes to the calf. He takes NSAIDs without relief. He has had physical therapy in the past that did not help. He is neurologically intact. X-rays of the lumbar spine show degenerative changes most significant at L4-5 with irregularity of the adjacent endplates. I will send him in a prescription for dexamethasone. He knows not to take any NSAIDs while he is on the dexamethasone. He will get a prescription for Pepcid for GI prophylaxis. I gave him a prescription for physical therapy today and we will also order an MRI of the lumbar spine to better understand his situation. Vitamin D deficiency 07/10/2022 Marijuana user 01/19/2020 Migraine without status migrainosus, not intract able 11/27/2019 Seasonal allergies 11/09/2019 Mild intermittent asthma without complication G6PD deficiency 08/24/2018 Homelessness 07/28/2018 Umbilical hernia 11/22/2017 Overview (03/06/2024): Seen by Dr. 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 History of substance abuse 06/11/2016 Primary insomnia 06/11/2016 Encounters Date Type Department Care Team Description 04/20/2025 11:07 AM EST - 04/20/2025 1:06 PM [facility] Emergency [address] [place] [address] Nonintractable headache, unspecified chronicity pattern, unspecified headache type (Primary Dx) Discharge Disposition: Home or Self Care from Last 3 Months Immunizations Immunization Administration Dates Next Due COVID-19 (Moderna/Spikevax) 12yo and older 06/08/2023 Hep A, Unspecified 07/07/2007,06/15/2007, 005 Influenza Quadravalent, MDCK , 0.5ml, preservative free (Flucelvax) 6mo and older 06/10/2022 Influenza Quadravalent, gail mbinant, 0.5ml, preservative free (Flublok) 18yo and older 04/08/2020 Influenza Quadrivalent, 0.5m l, preservative free (Fluarix; FluLaval; Fluzone) ages 6mo and older (Afluria) 3yo and older 04/19/2021 Influenza trivalent, with preservative (Fluzone; Afluria) 6mo and older 07/05/2018,06/11/2016,04/19/2014,2008,04/07/2007,05/23/2004 MMR, measles mumps and rubel la Live (Priorix; M-M-R II) 12mo and older 10/26/2014 PPD Test 10/30/2014 Tdap Tetanus diptheria acell ular pertussis (Boostrix; Adacel) 7yo and older 11/18/2020,09/17/2019,10/26/2014,2014,04/24/2014,09/04/2012,09/04/2012 Surgical History Surgery Date Site/Laterality Comments HERNIA REPAIR PROCEDURE: RI REPAIR FIRST ABDOMINAL WALL HERNIA Medical History Medical History Date Comments Fracture of left orbit ([facility] V24, [facility] V28) 2012 DX:Fracture of left orbit ([facility]) Asthma DX:Asthma History of reduction of orbi rj fracture 11/25/2017 DX:History of reduction of o rbital fracture; COMMENT: Left 2013 Umbilical hernia 11/25/2017 DX:Umbilical he rnia G6PD deficiency DX:G6PD deficien cy Family History Relation Name Status Comments Father Alive Mother Alive Social History Tobacco Use Types Packs/Day Years Used Date Smoking Tobacco: Former Smokeless Tobacco: Never Tobacco Cessation:Counseling Given: Not Answered Alcohol Use Standard Drinks/Week Comments Not Currently 0 (1 standard drink = 0.6 oz pur e alcohol) Sex and Gender Information Value Date Recorded Sex Assigned at Male 05/19/2024 3:53 PM EST Legal Sex Male 7:41 PM EST Gender Identity Male 05/19/2024 3:53 PM EST Sexual Orientation Not on file Last Filed Vital Signs Vital Sign Reading Time Taken Comments Blood Pressure 125/83 04/20/2025 11:36 AM EST Pulse 61 04/20/2025 11:36 AM EST Temperature 36.5 C (97.7 F) 04/20/2025 11:36 AM EST Respiratory Rate 18 04/20/2025 11:36 AM EST Oxygen Saturation 100% 04/20/2025 11:36 AM EST Inhaled Oxygen Concentration - - Weight 77.6 kg (171 lb) 02/07/2025 1:21 PM EDT Height 182.9 cm (6' 0.01 ) 02/07/2025 1:21 PM ED T Body Mass Index 23.19 02/07/2025 1:21 PM EDT Plan of Treatment Health Maintenance Due Date Last Done Comments Hepatitis B Vaccines (1 of 3 - 19+ 3-dose series) 2001 Pneumococcal Vaccine: Pediatrics (0 to 5 Years) and At-Risk Patients (6 to 49 Years) (1 of 2 - PCV) 2001 HPV Vaccines (1 - 3-dose SCDM series) 2009 Hepatitis C Screening 05/09/2022 Social Influencers of Health Screening 05/09/2022 Depression Screening 06/07/2024 COVID-19 Vaccine ( season) 2025 06/08/2023, 06/10/2022, 01/05/2022, Additional history exists Influenza Vaccine (#1) 2025 , 04/19/2021, 04/08/2020, Additional history exists Cholesterol Screening (Lipid Panel) 11/08/2028 11/09/2023, 11/09/2023, 04/27/2022, Additional history exists DTaP,Tdap,and Td Vaccines (8 - Td or Tdap) 11/18/2030 11/18/2020, 09/17/2019, 10/26/2014, Additional history exists RSV Immunization Adult Patients (1 - 1-dose 75+ series) 2057 Hepatitis A Vaccines Completed 07/07/2007, 06/15/2007, 09/28/2004 MMR Vaccines Aged Out 10/26/2014 No longer eligi ble based on patient's age to complete this topic HIV Screening Completed 04/10/2020 HIB Vaccines Aged Out No longer eligi ble based on patient's age to complete this topic IPV Vaccines Aged Out No longer eligi ble based on patient's age to complete this topic Meningococcal ACWY Vaccine Aged Out N o longer eligible based on patient's age to complete this topic Meningococcal B Vaccine Aged Out No l onger eligible based on patient's age to complete this topic RSV Immunization Patients Under 20 months Aged Out No longer eligible based on patient's age to complete this topic Varicella Vaccines Aged Out No longer eligible based on patient's age to complete this topic Insurance MEDICAID - [place] Care Teams Lodging House Keeper Relationship Specialty Start Date End Date Dillon Woodall NP [address] [place] [address] PCP - General Nurse Practitioner 01/04/25
--- OUTSIDE RECORDS SUMMARY | 2025-05-22 13:45 | XMS_ITS | Clinical Summary ---
Author Organization [facility] Address [address] [place], [place] [id number] Phone Care Team Providers Care Manager Medical Writing Name Role Phone Pcp, Unknown Primary Care Provider Unavailabl e Allergies Active Allergy Reactions Criticality Noted Date Comments Acetaminophen 02/04/2022 Other reaction(s): G6PD- G6PD Dapsone 06/15/2016 Nitrofurantoin 06/15/2016 Other 06/15/2016 Quinine 06/15/2016 Sulfonylureas 06/15/2016 Social History Tobacco Use Types Packs/Day Years Used Date Smoking Tobacco: Never Smokeless Tobacco: Never Alcohol Use Standard Drinks/Week Comments Not Currently 0 (1 standard drink = 0.6 oz pur e alcohol) Education Answer Date Recorded Are you interested in more education? Not on fareed e 09/27/2023 Are you concerned about learning? Not on file 09/27/2023 No 09/27/2023 No 09/27/2023 Digital Access Answer Date Recorded No 09/27/2023 No 09/27/2023 Reliable internet access at home? Not on file 09/27/2023 Device with a working camera? Not on file Intimate Partner Violence Answer Date R ecorded Are you denied basic needs s uch as food, clothing, or medical care? No 09/27/2023 In the past 12 months have y ou been in a relationship with a person who hurts, threatens, or tries to control you? No 09/27/2023 Are you denied basic needs s uch as food, clothing, or medical care? No 09/27/2023 In the past 12 months have y ou been in a relationship with a person who hurts, threatens, or tries to control you? No 09/27/2023 Sex and Gender Information Value Date Recorded Sex Assigned at Male 09/27/2023 5:57 PM EDT Legal Sex Male 5:55 PM EDT Gender Identity Male 09/27/2023 5:57 PM EDT Sexual Orientation Straight 09/27/2023 5: 57 PM EDT Last Filed Vital Signs Vital Sign Reading Time Taken Comments Blood Pressure 112/71 09/27/2023 5:59 PM EDT Pulse 65 09/27/2023 5:59 PM EDT Temperature 36.7 C (98.1 F) 09/27/2023 5:59 PM EDT Respiratory Rate 16 09/27/2023 5:59 PM EDT Oxygen Saturation 99% 09/27/2023 5:59 PM EDT Inhaled Oxygen Concentration - - Weight 86.2 kg (190 lb) 09/27/2023 5:59 PM EDT Height 182.9 cm (6') 09/27/2023 5:59 PM EDT Body Mass Index 25.77 09/27/2023 5:59 PM EDT Plan of Treatment Health Maintenance Due Date Last Done Comments DEPRESSION SCREENING 1994 HEPATITIS C SCREENING 2000 HIV ONE-TIME SCREENING (18-65 YEARS) 2000 INFLUENZA VACCINE (#1) 2025 COVID-19 VACCINE (2024- season) 2025 SCREENING FOR DIABETES 09/24/2025 09/24/2022 LIPID PANEL 09/25/2027 09/24/2022, 09/06, 04/27/2022, Additional history exists Adult Td,Tdap Booster 11/18/2030 11/18/2020 , 09/17/2019, 10/26/2014, Additional history exists SMOKING STATUS SCREENING (Once After 26 Yrs) Completed 09/27/2023 HEPATITIS A VACCINES Aged Out No long er eligible based on patient's age to complete this topic HIB VACCINES Aged Out No longer eligi ble based on patient's age to complete this topic MENINGOCOCCAL VACCINES (ACWY) Aged Out No longer eligible based on patient's age to complete this topic MENINGOCOCCAL VACCINES (B) Aged Out N o longer eligible based on patient's age to complete this topic PNEUMOCOCCAL VACCINES (0-49 years) Aged Out No longer eligible based on patient's age to complete this topic Medical Devices Not on file Insurance C3 ACO C3 ACO C3 ACO C3 ACO C3 ACO C3 ACO Care Teams Manager Medical Writing Relationship Specialty Start Date End Date Pcp, Unknown PCP - General 09/27/23 Additional Source Comments The information contained in this document represents components of the legal health record. It is not the complete legal health record.[facility]
--- OUTSIDE RECORDS SUMMARY | 2025-05-22 13:45 | XMS_ITS ---
Author Organization [employer] Address [address] [place] [address] 7 [place] [address] Care Team Providers Care Elevator Installer Name Role Phone Veronica Jaramillo RN Unavailable [phone] Yaneth Curry Unavailable Unavailable CM Complex Status:Enrolled (Active) Start date:04/24/2025 Enrollment date:04/30/2025 Enrollment reason:ADT Feed Overview Member identified for care management from C3 ADT feed following event at [facility] on 04/20. Case Team Name Relationship Phone Veronica Jaramillo RN(Responsible Staff) Registered Nurse [phone] Continued Care and Services Coordination
== END 2025-05-22 11:43 | disposition home or self-care (01) ==
PROVIDERS: Visit Provider Physician Assistant
DX: M75.102 Unspecified rotator cuff tear or rupture of left shoulder, not specified as traumatic (principal); M19.012 Primary osteoarthritis, left shoulder
CPT/HCPCS: 20610; 99204

== ENCOUNTER 2025-05-22 10:50 | Outpatient (REF) | payer MEDICAID, SELFPAY ==
--- NOTE | ~2025-05-22 | XR_ITS ---
EXAMINATION: XR SHOULDER, LEFT CLINICAL INFORMATION: M25.519 - Pain in unspecified shoulder COMPARISON: None available. TECHNIQUE: Three views of the left shoulder. FINDINGS: Normal bone mineralization. No fracture, dislocation, or suspicious bone lesion. Normal alignment. The glenohumeral joint is normal. The AC joint is normal. There is a type II acromion. No undersurface spurring. The subacromial space is preserved. Remainder of the soft tissue and bony structures appear normal. XR/XR shoulder LT min 2V IMPRESSION: Normal left shoulder. Electronically signed by: Garret Eddy MD 05/22/2025 10:59 AM [place]
--- OUTSIDE RECORDS SUMMARY | 2025-05-22 13:57 | XMS_ITS | Encounter Summary ---
Author Organization [facility] Prior to 04/07/2024 Address [address] [place] [address] Care Team Providers Care Artificial Cherry Maker Name Role Phone Black Paiz PA-C Unavailable Shaila Ambriz PA-C Unavailable June Sweet MD Unavailable [phone] Jenniffer Coleman MD [facility], [facility]cp Primary Care Provider Unavailguillermo e Encounter Details Date Type Department Care Team Description 01/06/2024 [facility] [address] [phone] Dustin Kumari DPM [address] [address] Social History Tobacco Use Types Packs/Day Years Used Date Smoking Tobacco: Former Smokeless Tobacco: Never Alcohol Use Standard Drinks/Week Comments Not Currently 0 (1 standard drink = 0.6 oz pur e alcohol) Sex Assigned at Date Recorded Not on file Job Start Date Occupation Industry Not on file Not on file Not on file documented as of this encounter Plan of Treatment Not on file documented as of this encounter Visit Diagnoses Not on filedocumented in this encounter Care Teams Artificial Cherry Maker Relationship Specialty Start Date End Date Jenniffer Coleman MD [address] [place] [address] PCP - General Internal Medicine 12/30/23 02/20/24 [facility]cp [address] [place] [address] PCP - General Internal Medicine 02/21/24 Black Paiz PA-C [address] [address] Specialist Neurosurgery 11/26/23 Shaila Ambriz PA-C [address] [address] Specialist Neurosurgery 11/26/23 June Sweet MD [address] [address] Surgeon Neurosurgery 11/26/23 documented as of this encounter
--- OUTSIDE RECORDS SUMMARY | 2025-05-22 13:57 | XMS_ITS | Encounter Summary ---
Author Organization [facility] Prior to 04/07/2024 Address [address] [place] [address] Care Team Providers Care Juke Box Mechanic Name Role Phone Black Paiz PA-C Unavailable Shaila Ambriz PA-C Unavailable [phone] June Sweet MD Unavailable [phone] Community, Pcp Primary Care Provider Unavailabl e Encounter Details Date Type Department Care Team Description 03/27/2024 Incoming Correspondence [facility] [address] [phone] Philipp Low DPM Social History Tobacco Use Types Packs/Day Years [...] on filedocumented in this encounter Care Teams Juke Box Mechanic Relationship Specialty Start Date End Date Community, Pcp [address] [address] PCP - General Internal Medicine 02/21/24 Black Paiz PA-C [address] [address] Specialist Neurosurgery 11/26/23 Shaila Ambriz PA-C [address] [address] Specialist Neurosurgery 11/26/23 June Sweet MD [address] [place] [address] Surgeon Neurosurgery 11/26/23 documented as of this encounter
--- OUTSIDE RECORDS SUMMARY | 2025-05-22 13:57 | XMS_ITS | Encounter Summary ---
Author Organization [facility] Prior to 04/07/2024 Address [address] [place] [address] Care Team Providers Care Mess Attendant Crew Name Role Phone Black Paiz PA-C Unavailable [phone] Shaila Ambriz PA-C Unavailable June Sweet MD Unavailable [phone] Community, Pcp Primary Care Provider Unavailabl e Encounter Details Date Type Department Care Team Description 03/29/2024 Incoming Correspondence [facility] [address] [phone] Philipp Low DPM Social History [...] on filedocumented in this encounter Care Teams Mess Attendant Crew Relationship Specialty Start Date End Date Community, Pcp [address] [address] PCP - General Internal Medicine 02/21/24 Black Paiz PA-C [address] [address] Specialist Neurosurgery 11/26/23 Shaila Ambriz PA-C [address] [address] Specialist Neurosurgery 11/26/23 June Sweet MD [address] [place] [address] Surgeon Neurosurgery 11/26/23 documented as of this encounter
--- OUTSIDE RECORDS SUMMARY | 2025-05-22 13:57 | XMS_ITS | Encounter Summary ---
Author Organization [facility] Prior to 04/07/2024 Address [address] [place] [address] Care Team Providers Care Picture Frames Inspector Name Role Phone Black Paiz PA-C Unavailable [phone] Shaila Ambriz PA-C Unavailable [phone] June Sweet MD Unavailable [phone] Jenniffer Coleman MD [facility], Pcp Primary Care Provider Unavailguillermo e Encounter Details Date Type Department Care Team Description 01/19/2024 Telephone Adult Medicine [address] [address] Jenniffer Coleman MD [address] [place] [phone] Social History Tobacco Use Types Packs/Day Years [...] on filedocumented in this encounter Care Teams Picture Frames Inspector Relationship Specialty Start Date End Date Jenniffer Coleman MD [address] [place] [address] PCP - General Internal Medicine 12/30/23 02/20/24 Community, [facility] [address] [place] [address] PCP - General Internal Medicine 02/21/24 Black Paiz PA-C 175 [facility] [address] [place] [phone] Specialist Neurosurgery 11/26/23 Shaila Ambriz PA-C [address] [address] Specialist Neurosurgery 11/26/23 June Sweet MD [address] [address] Surgeon Neurosurgery 11/26/23 documented as of this encounter
--- OUTSIDE RECORDS SUMMARY | 2025-05-22 13:57 | XMS_ITS | Encounter Summary ---
Author Organization [facility] Prior to 04/07/2024 Address [address] [place] [address] Care Team Providers Care Tamping Machine Operator Name Role Phone Community, Pcp Primary Care Provider Unavailguillermo e Saida Barger Primary Care Provider Unav Black Haynes PA-C Unavailable Shaila Ambriz PA-C Unavailable June Sweet MD Unavailable [phone] Jenniffer Coleman MD Primary Care Provider [facility], Pcp Primary Care Provider Sacha e Encounter Details Date Type Department Care Team Description 11/05/2022 Release of Information Medical Records [address] [place] [id number] Abstract, Provider Social History Tobacco Use Types Packs/Day Years Used Date Smoking Tobacco: Former Smokeless Tobacco: Never Sex Assigned at Date Recorded Not on file Job Start Date Occupation Industry Not on file Not on file Not on file documented as of this encounter Plan of Treatment Not on file documented as of this encounter Visit Diagnoses Not on filedocumented in this encounter Care Teams Tamping Machine Operator Relationship Specialty Start Date End Date Community, Pcp PCP - General Internal Medicine 04/15/21 11/11/23 Saida Barger FNP PCP - General Nurse Practitioner Family 11/12/23 12/29/23 Jenniffer Coleman MD [address] [place] [address] PCP - General Internal Medicine 12/30/23 02/20/24 Community, Pcp PCP - General Internal Medicine 02/21/24 Black Paiz PA-C 175 [facility] [address] [place] [phone] Specialist Neurosurgery 11/26/23 Shaila Ambriz PA-C [address] [address] Specialist Neurosurgery 11/26/23 June Sweet MD 175 [facility] [address] [place] [phone] Surgeon Neurosurgery 11/26/23 documented as of this encounter
--- OUTSIDE RECORDS SUMMARY | 2025-05-22 13:57 | XMS_ITS | Encounter Summary ---
Author Organization [facility] Prior to 04/07/2024 Address [address] [place] [address] Care Team Providers Care Screw Eye Assembler Name Role Phone Black Paiz PA-C Unavailable [phone] Shaila Ambriz PA-C Unavailable June Sweet MD Unavailable [phone] Jenniffer Coleman MD Primary Care Provider [phone] [facility], Pcp Primary Care Provider Unavailguillermo e Encounter Details Date Type Department Care Team Description 01/10/2024 SCAN [facility] [address] [phone] Dustin Kumari DPM [address] [address] Social History Tobacco Use Types Packs/Day Years [...] on filedocumented in this encounter Care Teams Screw Eye Assembler Relationship Specialty Start Date End Date Jenniffer Coleman MD [address] [place] [address] PCP - General Internal Medicine 12/30/23 02/20/24 [facility], Pcp [address] [place] [address] PCP - General Internal Medicine 02/21/24 Black Paiz PA-C [address] [address] Specialist Neurosurgery 11/26/23 Shaila Ambriz PA-C [address] [address] Specialist Neurosurgery 11/26/23 June Sweet MD [address] [address] Surgeon Neurosurgery 11/26/23 documented as of this encounter
--- OUTSIDE RECORDS SUMMARY | 2025-05-22 13:57 | XMS_ITS | Encounter Summary ---
Author Organization [facility] Prior to 04/07/2024 Address [address] [place] [address] Care Team Providers Care Field Crop Grower Name Role Phone Black Paiz PA-C Unavailable [phone] Shaila Ambriz PA-C Unavailable [phone] June Sweet MD Unavailable [phone] [facility], Pcp Primary Care Provider Unavailabl e Reason for Visit * Reason Onset Date Comments Form 03/08/2024 Encounter Details Date Type Department Care Team Description 03/08/2024 Telephone [facility] [address] [place] [address] [place] [phone] Philipp Low DPM Form Social History Tobacco Use Types Packs/Day Years Used Date Smoking Tobacco: Former Smokeless Tobacco: Never Alcohol Use Standard Drinks/Week Comments Not Currently 0 (1 standard drink = 0.6 oz pur e alcohol) Sex Assigned at Date Recorded Not on file Job Start Date Occupation Industry Not on file Not on file Not on file documented as of this encounter Miscellaneous Notes * Telephone Encounter - Timo Hernandez - 03/29/2024 12:40 PM EDT Patient brought in paperwork he needs filled out for his job. Patient has an appt scheduled for 03/29 where he can go over everything he states that he needs documented in this encounter Plan of Treatment Not on file documented as of this encounter Visit Diagnoses Not on filedocumented in this encounter Care Teams Field Crop Grower Relationship Specialty Start Date End Date Community, Pcp [address] [address] PCP - General Internal Medicine 02/21/24 Black Paiz PA-C [address] [address] Specialist Neurosurgery 11/26/23 Shaila Ambriz PA-C [address] [address] Specialist Neurosurgery 11/26/23 June Sweet MD [address] [address] Surgeon Neurosurgery 11/26/23 documented as of this encounter
--- OUTSIDE RECORDS SUMMARY | 2025-05-22 13:57 | XMS_ITS | Data Portability ---
Author Organization GEOVANNA Glover s, [address] Address [address] [place] [address] Care Team Providers Care Miter Operator Name Role Phone [facility] Care Provider Assessment Encounter Date Assessment Date Assessment LastModified by Organization Details LastModified Time 03/20/2024 03/20/2024 Patient was evaluated by the Physician Drywall Applicator using AV technology. This type of exam does not replace a need for an in-person evaluation if symptoms worsen or do not improve after 24-48 hours. Not available 03/20/2024 19:49:21 03/21/2024 03/21/2024 Patient was evaluated by the Physician Drywall Applicator using AV technology. This type of exam does not replace a need for an in-person evaluation if symptoms worsen or do not improve after 24-48 hours. Not available 03/21/2024 12:13:45 03/25/2024 03/25/2024 Patient was evaluated by the Physician Drywall Applicator using AV technology. This type of exam does not replace a need for an in-person evaluation if symptoms worsen or do not improve after 24-48 hours. Not available 03/25/2024 17:58:42 Plan of Treatment Reminders Order Date Submit Date Provider Last Modified By Organization Details Last Modified Time Details Appointments None recorded. Lab None recorded. Referral deputy clerk of superior court referral - bilateral foot pain planter side , mutiple callous and blister formation. need further evaluation and treatment. 2023 024 [email or web address] Not available 19:08:38 Procedures None recorded. Surgeries None recorded. Imaging None recorded. Medication Orders sumatriptan 50 mg tablet 2023 024 MON[id number], [address] [place], [address], 17:57:07 neomycin-po lymyxin-hyd rocort 3.5 mg-10,000 unit/mL-1 % ear drops,susp 2023 024 [email or web address] 31 [id number], [address] [place], [address], 17:47:38 erythromyci n 5 mg/gram (0.5 %) eye ointment 2023 024 [email or web address] 31 [id number], [address] [place], [address], 17:47:33 ibuprofen 800 mg tablet 2023 024 [email or web address] 2 [id number], [address] [place], [address], 19:28:03 cephalexin 500 mg capsule 2023 024 [email or web address] 2 [id number], [address] [place], [address], 19:27:03 fluticasone propionate 50 mcg/actuati on nasal spray,suspe nsion 2023 024 [email or web address] 2 [id number], [address] [place], [address], 19:27:57 Patient TargetsNo targets recorded. 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 Procedures Surgical History Date Name Laterality Status Provider Name and Address Organization Details Recorded Time 4 Virtual Visit completed GEOVANNA Woods [address] [place], [address], [place] - [facility] 03/25/2024 17:52:30 4 [...] Name and Address Organization Details Recorded Time [id number] Tylenol medicatio n Not available Not available [...] rate Body temperature Heart rate Oxygen saturation Systolic And Diastolic Provider Name and Address Organization Details Last Updated DateTime 4 182.88 cm 24.4 kg/m2 67249.6 3 g 18 /min 97.5 [degF] 74 /min 97 % 96/67 mm[Hg] Viridiana Grahamts PA - [facility] 4 10:31:05 Date Recorded Body height Body mass index (BMI) Body weight Pain severity - 0-10 verbal numeric rating [Score] - Reported Oxygen saturation Heart rate Respiratory rate Body temperature Systolic And Diastolic Provider Name and Address Organization Details Last Updated DateTime 4 182.88 cm 24.4 kg/m2 54677.6 3 g 8 98 % 73 /min 18 /min 98.7 [degF] 94/61 mm[Hg] Bria Gonzalez PA - [facility] 18:14:34 Date Recorded Body height Body mass index (BMI) Body weight Provider Name and Address Organization Details Last Updated DateTime 03/20/2024 182.88 cm 25.8 kg/m2 94239.55 g Erica Cortés PA - [facility] 03/20/2024 19:25:50 Date Recorded Body height Body mass index (BMI) Body weight Provider Name and Address Organization Details Last Updated DateTime 03/21/2024 182.88 cm 25.8 kg/m2 63369.55 g Tracy Linwood [place] - [facility] 03/21/2024 12:06:46 Date Recorded Body height Provider Name an d Address Organization Details Last Updated DateTime 03/25/2024 182.88 cm Bria Gonzalez [place] - [facility] 03/25/2024 17:47:24 Social History Question Answer Notes LastModified by Organizat ion Details LastModified Time Tobacco Smoking Status Former Smoker Trae ochoa PA - [facility] 01/10/2024 18:37:03 Have You Had A Flu Shot This Season? No Information not available 01/10/2024 If No, Would You Like A Flu Shot Today? No [email or web address] Information not available 03/21/2024 What Is Your Relationship Status? Single [email or web address] Information not available 03/20/2024 Have You Recently [...] available 01/10/2024 Are you currently employed? No [email or web address] Information not available 03/20/2024 Mental Status None [...] Hep A, unspecified formulation 5 completed Viridiana ochoa, PA - [facility] 02/22/2024 10:15:41 COVID-19, mRNA, LNP-S, PF, 50 mcg/0.5 mL 4 completed Erica Cortés null, PA - [facility] 03/20/2024 19:26:05 Past Encounters Encounter ID Performer Location Encounter Start Date Encounter Closed Date Diagnosis/Indication Diagnosis SNOMED-CT Code Diagnosis ICD10 Code Diagnosis IMO Codes Diagnosis Note [id number] [address] [facility] [address] [facility] [place] [address] 06/20/2019 10:31:31 06/20/2019 13:37:24 [id number] Suzette Lauren [facility] [address] [address] [facility] [place] [address] 07/08/2022 16:28:05 07/08/2022 19:31:54 History and physical examination, pre-employment 843910863 Z02.1 [id number] Miguel Delacruz [facility] [address] [facility] [address] [facility] [place] [address] 01/10/2024 18:14:01 01/10/2024 19:47:12 Contusion of left forearm 4675188191 1275890 S50.12XA You have a large Contusion/ Hematoma [...] a medical profession al look at it. [id number] GEOVANNA Araya [address] [facility] [address] [place] [place] [address] 02/13/2024 10:33:36 02/13/2024 11:19:08 Viral gastroenteritis 554110330 A08.4 [id number] GEOVANNA Woods [address] [facility] [address] [place] [address] 02/22/2024 10:13:37 02/22/2024 10:43:48 Plantar fasciitis of right foot 9046115285 0577121 M72.2 One of the most common causes [...] the results. If you don't hear from [employer] radiologis t agreed with my interpreta tion. Upper resp iratory infection 01905997 J06.9 Patient presented with symptoms of upper [...] usage was discussed and recommenda tions made.Coby nt understood these instructio ns and will follow up in the office in 10 days to 2 weeks if symptoms not improving. ER if any shortness of breath/sumaya st pain or worsening. Thank you for using [facility] today, please feel free to contact our office if you have any questions or concerns. [id number] JEN UGALDE MD [address] [facility] [address] [place] [address] 03/03/2024 17:25:20 03/03/2024 19:08:38 Pain in bilateral feet 7416340804 6371730 M79.671 Based on your presentati on and [...] that are tender Thank you for using [facility] today, please don't hesitate to call or reach out to us if you have any questions or concerns. [id number] GEOVANNA Woods [address] [facility] [address] [place] [address] 03/20/2024 19:15:07 03/20/2024 19:48:53 Hordeolum externum of lower eyelid of right eye 6560764100 23487 H00.012 Based on your presentati on and [...] than 2 weeks. Thank you for using [facility] today, please feel free to contact us with any questions or concerns. [id number] [facility]OVANNA Woods [address] [address] [place] [address] 03/21/2024 12:02:38 03/21/2024 12:31:15 Otitis externa of right ear 4750430871 239018 H60.91 You have been diagnosed with a [...] if you have any concerns or questions. [id number] GEOVANNA Woods [address] [address] [place] [address] 03/25/2024 17:42:51 03/25/2024 18:00:50 Migraine 87199587 G43.909 A migraine is a severe headache. The pain can be so severe that it interferes with your daily activities . A migraine can last a few hours up to several days. The exact cause of migraines is not known. D ISCHARGE INSTRUCTIO NS: S [place] [facility] immediatel y if:You have a headache [...] and ice. Pain in bi lateral feet 8697764260 6321722 M79.671 Following with podiatry for plantar fasciitis Health Concerns Section Related Observation LastModified by Organization Detai ls LastModified Time None Recorded Concern Status LastModified by Organization Details LastModified Time None Recorded Advance Directives Directive None Recorded Payers Insurance Date Sequence Insurance Name Policy Number Policy Arboleda Covered Member ID Arboleda Member ID Guarantor Name 07/08/2022 OC-ESCREEN Escreen PFS [place] Devendra Husain 04/03/2024 1 [facility] (MEDICAID REPLACEMENT - HMO) TRIPP Husain [id number] Devendra Rodrigue 04/03/2024 1 [facility] (MEDICAID REPLACEMENT - HMO) [id number] Devendra Husain [id number] Devendra Husain 01/10/[address] [place] [address] (MEDICAID HMO) [id number] Devendra Husain [id number] Devendra Husain 05/06/2022 GENERIC WORKER'S COMP (MOVED TO HOLD) [facility] Occ Med Generic (Move To Hold) [625230] Devendra Husain Notes Date Note Type Note Provider Name and Address Organization Details Recorded Time 02/22/20 24 text/htm l 43 y/o male with pain to the bottom of his R foot for several months, worsening. Also with sinus congestion for the past several weeks, no fevers, chills, minimal cough GEOVANNA Woods [address] [place], [address], [place] - [facility] 02/22/2024 10:51:06 03/03/20 24 text/htm l Foot/Ankle UCReported by PatientHPIFor associated symptoms, patient reportsswellingandrednessbut reportsno weakness,no numbness,no tingling,no warmth, andno ecchymosis. 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 stating bottom of [...] Miguel Delacruz NP [address] [place], [address], [place] - [facility] 03/03/2024 19:07:46 03/20/20 [...] ago, uncomfortable, some drainage GEOVANNA Woods [address] [place], [address], [place] [email or web address] [facility] 03/20/2024 19:49:34 03/21/20 24 text/htm [...] a week or so. GEOVANNA Woods [address] [place], [address], [employer] - [facility] 03/21/2024 12:29:00 03/25/20 24 [...] sumatriptan, has run out. needs refill [place], [address], [place] - [facility] 03/25/2024 17:58:56
--- OUTSIDE RECORDS SUMMARY | 2025-05-22 13:57 | XMS_ITS | Encounter Summary ---
Author Organization [facility] Prior to 04/07/2024 Address [address] [place] [address] Care Team Providers Care Radiology Teacher Name Role Phone Community, Pcp Primary Care Provider Unavailabl e Saida Barger Primary Care Provider Unav ailable Black Paiz PA-C Unavailable [phone] Shaila Ambriz PA-C Unavailable June Sweet MD Unavailable [phone] Jenniffer Coleman MD Primary Care Provider [facility], Pcp Primary Care Provider Unavailabl e Encounter Details Date Type Department Care Team Description 11/03/2022 Telephone General Surgery - [place] 175 [facility] [address] [place] [address] Kasey Talley MD [address] [address] Social History Tobacco Use Types Packs/Day Years Used Date Smoking Tobacco: Former Smokeless Tobacco: Never Sex Assigned at Date Recorded Not on file Job Start Date Occupation Industry Not on file Not on file Not on file documented as of this encounter Miscellaneous Notes * Telephone Encounter - Johanna Breanne - 11/03/2022 4:46 PM EDT Received patient's [employer] paper work and the same was filled out by Yaneth. Once completed I emailed it back to the patient and informed him to fill out his portion. * Telephone Encounter - Madhavi Casanova - 11/03/2022 4:21 PM EDT Pt called and wanted to advise Dr Luna he emailed his la ppw to her. I advised him she would get it and fill it out once she has a chance . Pt wanted in dont today . I did tell him we usually ask for 10 business days but I would send message. documented in this encounter Plan of Treatment Not on file documented as of this encounter Visit Diagnoses Not on filedocumented in this encounter Care Teams Radiology Teacher Relationship Specialty Start Date End Date Community, Pcp PCP - General Internal Medicine 04/15/21 11/11/23 Saida Barger FNP PCP - General Nurse Practitioner Family 11/12/23 12/29/23 Jenniffer Coleman MD [address] [place] [address] PCP - General Internal Medicine 12/30/23 02/20/24 [facility], Pcp PCP - General Internal Medicine 02/21/24 Black Paiz PA-C [address] [address] Specialist Neurosurgery 11/26/23 Shaila Ambriz PA-C [address] [address] Specialist Neurosurgery 11/26/23 June Sweet MD [address] [address] Surgeon Neurosurgery 11/26/23 documented as of this encounter
== END 2025-05-22 10:51 | disposition home or self-care (01) ==
LOC: HO.HOSX 10:50
PROVIDERS: Visit Provider Physician Assistant
DX: M75.102 Unspecified rotator cuff tear or rupture of left shoulder, not specified as traumatic (principal); M19.012 Primary osteoarthritis, left shoulder
CPT/HCPCS: 73030

== ENCOUNTER → 2025-05-22 10:51 | Outpatient (BNV) | payer MEDICAID, SELFPAY | PROVIDERS: Visit Provider Radiology Diagnostic Radiology | DX: M25.512 Pain in left shoulder (principal) | CPT/HCPCS: 73030 ==

== ENCOUNTER 2025-06-05 10:03 | Outpatient (REF) | payer MEDICAID, SELFPAY ==
--- NOTE | 2025-06-05 10:06 | EMG_ITS ---
Chief complaint: Pain in bilateral legs Referred by: Jakob Cooper MD Procedure done: NCS and EMG of bilateral lower extremity Bilateral peroneal and tibial motor studies were performed with F responses and tibial H reflexes. Bilateral superficial peroneal and sural sensory studies were performed. Bilateral median and lateral mixed plantars sensory studies were performed and needle examination was performed. Findings: Bilateral peroneal distal latencies were mildly prolonged with moderate slowing of conduction velocity in right leg across fibular head. Tibial studies revealed moderate prolongation of distal latencies. Tibial F responses were somewhat delayed. Right superficial peroneal amplitude was significantly reduced. Sural responses revealed significant reduction of amplitude on the right side with mild slowing of conduction velocity. Sensory amplitude in feet were significantly reduced. 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
--- OUTSIDE RECORDS SUMMARY | 2025-06-05 13:11 | XMS_ITS | Clinical Summary ---
Author Organization 175 [facility] Address [address] [place] [address] Phone Care Team Providers Care Manager Strategic Alliances Name Role Phone Dillon Woodall NP Primary Care Provider [phone] Allergies Active Allergy Reactions Criticality Noted Date [...] FOR PAIN [address] [facility] 5 Active melatonin 3 mg tablet 5 [...] cluster 11/26/2023 Lumbar spondylosis 06/08/2023 Overview (03/06/2024): [facility] MRI May 2023 Chronic right-sided low back [...] 11:07 AM EST - 04/20/2025 1:06 PM [facility] Emergency [address] [place] [address] Nonintractable headache, unspecified chronicity pattern, [...] Surgery Date Site/Laterality Comments HERNIA REPAIR PROCEDURE: GA REPAIR FIRST ABDOMINAL WALL HERNIA Medical History Medical History Date Comments Fracture of left orbit ([facility] V24, [facility] V28) 2012 DX:Fracture of left orbit (H [...] topic Insurance MEDICAID - [place] Care Teams Manager Strategic Alliances Relationship Specialty Start Date End Date Dillon Woodall NP [address] [place] [address] PCP - General Nurse Practitioner 01/04/25
--- OUTSIDE RECORDS SUMMARY | 2025-06-05 13:11 | XMS_ITS | Clinical Summary ---
Author Organization [facility] Address [address] [place], [place] [address] Phone Care Team Providers Care Hand Tube Bender Name Role Phone Pcp, Unknown Primary Care [...] ACO C3 ACO C3 ACO Care Teams Hand Tube Bender Relationship Specialty Start Date End Date Pcp, Unknown PCP - General 09/27/23 Additional Source Comments The information contained in this document represents components of the legal health record. It is not the complete legal health record.[facility]
--- OUTSIDE RECORDS SUMMARY | 2025-06-05 13:11 | XMS_ITS ---
Author Organization [facility] Address [address] [place] [address] 7 [place] [address] Care Team Providers Care Director Data Analytics Name Role Phone Veronica Jaramillo RN Unavailable [phone] Yaneth Curry Unavailable Unavailable CM Complex Status:Enrolled (Active) Start date:04/24/2025 Enrollment date:04/30/2025 Enrollment reason:ADT Feed Overview Member identified for care management from C3 ADT feed following event at [facility] on 04/20. Case Team Name Relationship Phone Veronica Jaramillo RN(Responsible Staff) Registered Nurse [phone] Continued Care and Services Coordination
--- OUTSIDE RECORDS SUMMARY | 2025-06-05 13:11 | XMS_ITS | Clinical Summary ---
Author Organization [facility] Address [address] [id number] Care Team Providers Care Account Developer Name Role Phone Kyrie Segal Primary Care Provider [phone] Allergies No known active allergies Medications No [...] 04/10/2020 Insurance HSNO/FREE CARE MEDICAID Care Teams Account Developer Relationship Specialty Start Date End Date Kyrie Segal [address] [place] [address] PCP - General Internal Medicine 07/10/24
--- OUTSIDE RECORDS SUMMARY | 2025-06-05 13:11 | XMS_ITS ---
Author Organization [facility] Address [address] [place] [address] [address] [place] [address] Care Team Providers Care Highway Technician Name Role Phone Veronica Jaramillo RN Unavailable [phone] Yaneth Curry Unavailable Unavailable CHW Complex Status:Enrolled (Active) Start date:04/24/2025 Enrollment date:04/26/2025 Enrollment reason:ADT Feed Overview Spoke w pt, enolled x2. Case Team Name Relationship Phone Yaneth Curry(Responsible Staff) Continued Care and Services Coordination
--- OUTSIDE RECORDS SUMMARY | 2025-06-05 13:11 | XMS_ITS | Clinical Summary ---
Author Organization [facility] Address [address] [facility] 7[address] [place] [address] Care Team Providers Care Informatica Name Role Phone Veronica Jaramillo RN Unavailable [phone] Yaneth Curry Unavailable Unavailable Medications albuterol [...] Ligament tear 01/22/2025 Overview (05/02/2025): 02/07/2025 - [facility] - Dx: Right elbow ulnar collateral [...] difficulties 09/30/2023 Lumbar spondylosis 06/08/2023 Overview (05/02/2025): [facility] MRI May 2023 Vitamin D deficiency [...] Primary insomnia 06/11/2016 History of substance abuse ([facility]) 06/11/2016 Overview (05/02/2025): December 2024- Endorses marijuana use only Encounters Date Type Department Care Team Description 05/21/2025 [facility]reach [facility] Department [address] [place] [address] Veronica Jaramillo, CHUY C3 Care Management - UTR 1 05/08/[address] [address] Yaneth Curry 05/02/2025 Patient Outreach [facility] Department [address] [place] [address] Veronica Jaramillo RN C3 Care Management 05/02/2025 Plan of Care Documentation [address] [address] 04/30/2025 Patient [facility] Department [address] [place] [address] Veronica Jaramillo RN C3 Care Management 04/26/[address] [address] Yaneth Curry 04/24/2025 Patient [facility] Department [address] [place] [phone] Veronica Jaramillo RN C3 Care Management - Chart Review 04/23/2025 Patient [facility]reach [facility] [address] [place] [phone] Christine Parra 04/23/2025 Patient Outreach [facility] [address] [phone] Christine Parra from Last 3 Months Social [...] age to complete this topic Care Teams Informatica Relationship Specialty Start Date End Date Veronica Jaramillo, CHUY Registered Nurse 04/23/25 Yaneth Curry 04/23/25
== END 2025-06-05 10:04 ==
LOC: HO.NEURO 10:03
PROVIDERS: Visit Provider Student in an Organized Health Care Education/Training Program
DX: G62.89 Other specified polyneuropathies (principal)
CPT/HCPCS: 95886; 95913

== ENCOUNTER → 2025-06-05 10:06 | Outpatient (BNV) | payer MEDICAID, SELFPAY | PROVIDERS: Visit Provider Psychiatry & Neurology Neurology | DX: G62.89 Other specified polyneuropathies (principal); M79.604 Pain in right leg; M79.605 Pain in left leg | CPT/HCPCS: 95886; 95912 ==